=== PATIENT | male | born 1950 | race Caucasian/White ===

== ENCOUNTER → 2018-01-03 | Day surgery (SDC) | payer OTHER ==
[~2018-01-03] VITALS: Ht 188 cm; Wt 163.3 kg
[~2018-01-03] MED LIST: ACTOS15 M1 PO; ALLOPURINOL300 M1 PO; ASPIRIN EC325 M2 PO; BENICAR20 M1 PO; CANE N; CLOPIDOGREL75 M1 PO; DIOVAN160 MG PO; FINASTERIDE5 M1 PO; FLEXERIL10 MG PO; GABAPENTIN400 M2 PO; GLIPIZIDE ER10 M1 PO; GLIPIZIDE10 MG PO; HYDRALAZINE HCL25 M1 PO; JANUVIA100 M1 PO; LASIX20 M1 PO; METFORMIN HCL500 M3 PO; METFORMIN HCL850 M1 PO; MULTIVITAMINS1 EAC9 PO; NAPROXEN D/R500 MG PO; NIFEDIPINE ER60 M2 PO; OXYBUTYNIN CHLOR5 M2 PO; PERCOCET 325 MG1 TA2 PO; PERCOCET 5-3251 EACH PO; TAMSULOSIN HCL0.4 M1 PO; TORSEMIDE20 M1 PO; VITAMIN D22000 UNIT PO; ZOCOR40 M1 PO
--- NOTE | 2018-01-03 14:10 | Operative Report ---
Operative/Inv Procedure Report Surgery Date: 01/03/18 Name of Procedure: cystoscopy: bilaterat retrograde pyelogram: fluoro: bilateral stent insertion: whiting placement Pre-Operative Diagnosis: renal failure: bilateral hydronephrosis Post-Operative Diagnosis: severe bph with bilat. hydro due to GONZAELZ with tortuous ureters bilat. Estimated Blood Loss: scant Surgeon/Club Concierge: Luis Antonio Perry MD Anesthesia: laryngeal mask airway Implants: 7 x 22 Bard Onlay stents bilaterally Drains: 18 fr whiting Complications: none Operative/Procedure Note Note: Patient was taken to the operating room and placed on the OR table in supine position. Timeout was performed, with the patient awake, in order to confirm planned procedure, and other pertinent perioperative information. After adequate anesthesia, and IV antibiotics, the patient was then placed in lithotomy stirrups. The patient was then draped and prepped in usual surgical fashion. A 22 Bhutanese cystoscope sheath with a 30 angle lens was inserted into the bladder without difficulty. Upon entering the prostate, the prostate was noted to have a large sized middle lobe with obstructing lateral lobes. Upon entering the bladder, the bladder was noted to be severely trabeculated with multiple small bladder celluoles. Bilateral ureter orifices were in their orthotopic positions. Both ureteral orifices were in their orthotopic position with no efflux bilaterally. The right orifice was identified, and a tiger tail catheter was inserted into the ureteral orifice. Retrograde pyelogram was performed revealing severely hydronephrotic ureter and renal pelvis with severe tortuosity , and proximal hydronephrosis. No stone, nor tumor were seen on retrograde. The cone-tipped catheter was removed, and a 0.035 Glidewire was advanced into the right renal pelvis without significant difficulty. The Glidewire was advanced into the right renal pelvis where it coiled without difficulty bypassing the ureter cork-screw tract, thus straightening it out. Over this Glidewire a 7 x 22 Bard onlay stent was railroaded. Under direct visualization, the stent was advanced into the right renal pelvis without difficulty. The Glidewire was removed, and the stent remained in proper place with the proximal coil in the renal pelvis and the distal coil in the bladder. At this point, the left orifice was identified, and a tiger tail catheter was inserted into the left ureteral orifice. Retrograde pyelogram was performed revealing severely hydronephrotic left ureter and renal pelvis with severe tortuosity, and proximal hydronephrosis. No stone, nor tumor were seen on retrograde. The cone-tipped catheter was removed, and a 0.035 Glidewire was advanced into the left renal pelvis without significant difficulty. The Glidewire was advanced into the left renal pelvis where it coiled without difficulty bypassing the ureter cork-screw tract, and subsequently straightening it out. Over this Glidewire a 7 x 22 Bard onlay stent was railroaded. Under direct visualization, the stent was advanced into the left renal pelvis without difficulty. The Glidewire was removed, and the stent remained in proper place with the proximal coil in the renal pelvis and the distal coil in the bladder. With both stents in proper place, the cystoscope was removed without difficulty. A new 18 Bhutanese Whiting catheter was inserted into the bladder without difficulty draining clear fluid. 10 mL of sterile water was placed into the 10 mL balloon. The Whiting was catheter was then placed on a drainage bag. All sponge needle and instrument count were correct at the end of the case. The patient tolerated procedure well was then taken to recovery room in satisfactory condition. Discharge Disposition: PACU CC: Luis Antonio Perry MD
--- NOTE | 2018-01-03 17:09 | RADIOLOGY REPORT ---
EXAMINATION: Intraoperative fluoroscopy CLINICAL INFORMATION: Bilateral ureteroscopically with stent placement COMPARISON: None. TECHNIQUE: Intraoperative fluoroscopy was provided for use by Dr. Perry. A total of 13 images were saved to PACS. TOTAL FLUOROSCOPIC TIME: 2.5 minutes FINDINGS\E\IMPRESSION: Intraoperative fluoroscopy provided for use by Dr. Perry. Please see operative note for detailed findings.
== END ==
LOC: STS 02:03
DX: N13.30 Unspecified hydronephrosis (principal); N40.1 Benign prostatic hyperplasia with lower urinary tract symptoms; N13.8 Other obstructive and reflux uropathy; I10 Essential (primary) hypertension; E11.9 Type 2 diabetes mellitus without complications; Z79.84 Long term (current) use of oral hypoglycemic drugs; E66.01 Morbid (severe) obesity due to excess calories; G47.33 Obstructive sleep apnea (adult) (pediatric); Z95.5 Presence of coronary angioplasty implant and graft; Z79.82 Long term (current) use of aspirin
CPT/HCPCS: 76000; 93005; 93010; C2617; J0696; J2250

== ENCOUNTER 2018-01-08 11:38 | Observation (INO) | payer OTHER, MEDICARE ==
[~2018-01-08] VITALS: Ht 188 cm; Wt 158.8 kg
[2018-01-08 12:42] LABS: ABSOLUTE BASOPHIL COUNT 0 /CUMM (0.0-0.2); ABSOLUTE EOSINOPHIL COUNT 0.4 /CUMM (0.0-0.7); ABSOLUTE GRANULOCYTE CT 4.1 /CUMM (1.4-6.5); ABSOLUTE LYMPH COUNT 1.1 /CUMM (1.2-3.4); ABSOLUTE MONOCYTE COUNT 0.6 /CUMM (0.10-0.60); BASOPHIL % 0.4 % (0.0-2.0); EOSINOPHIL % 6.8 % (0-5); GRANULOCYTE % 65.4 % (42.2-75.2); HEMATOCRIT 33.7 % (42-52); MEAN CORPUSCULAR HGB 28.2 PG (27.0-31.0); MEAN CORPUSCULAR HGB CONC 32.5 G/DL (33.0-37.0); MEAN CORPUSCULAR VOLUME 86.6 FL (80.0-94.0); MEAN PLATELET VOLUME 8.6 FL (7.4-10.4); PLATELET COUNT 243 /CUMM (130-400); RBC DISTRIBUTION WIDTH 17.1 % (11.5-14.5); RED BLOOD CELL CT 3.89 /CUMM (4.70-6.10); WHITE BLOOD CELL COUNT 6.3 /CUMM (4.8-10.8)
--- NOTE | 2018-01-08 13:32 | CT SCAN REPORT ---
EXAMINATION: CT ABDOMEN AND PELVIS WITHOUT CONTRAST CLINICAL INFORMATION: 67-year-old male presented with abdominal pain. Status post bilateral ureteric stent placement done on 01/03/2018. COMPARISON: Operative radiographs were obtained at the time of bilateral ureteric stent placement done on 01/03/2018. TECHNIQUE: Multidetector volumetric imaging was performed from the superior aspect of the liver through the pubic symphysis. Sagittal and coronal reformatted images were obtained on the technologist's workstation. DLP: 1555.77 mGy-cm FINDINGS: LUNG BASES: Hypoventilatory changes are present at both lung bases. Atherosclerotic disease is noted within the coronary arteries. LIVER, GALLBLADDER, AND BILIARY TREE: The liver is normal in size, shape, and attenuation. No focal hepatic lesion or biliary ductal dilatation is present. The gallbladder is unremarkable with no evidence of radiopaque gallstones, gallbladder wall thickening, or obvious pericholecystic inflammatory changes. PANCREAS: Partially fatty replaced. SPLEEN: Unremarkable. Accessory splenic tissue is noted around the hilum. ADRENAL GLANDS: Bilaterally minimally nodular without evidence of any discrete mass. KIDNEYS AND URETERS: [id number]-[id number] bilateral hydroureteronephrosis is present with ureteric dilatation seen to the level of the urinary bladder. Extrarenal pelvis is noted bilaterally. Both ureters appear quite tortuous along their entire course. Previously placed bilateral internal ureteric stent appears to have migrated inferiorly with the superior tip on the right seen within the proximal ureter at the level of mid part of L4 vertebral body while the superior tip of the left internal ureteric stent is noted at the level of superior endplate of L5 vertebral body. The inferior ends of both ureteric stents are within the urinary bladder, abutting the lateral gibson inside the lumen of the bladder. BLADDER: There is a Vargas catheter present with suboptimal distention and apparent urinary bladder wall thickening. There are significant inflammatory changes noted around the urinary bladder consistent with superimposed infection, inflammation or combination thereof. Focal lesion within the bladder is not excluded. GASTROINTESTINAL TRACT: Small sliding hiatal hernia is noted. The stomach, small and large bowel loops are decompressed. Colonic diverticulosis related changes are noted within the large bowel without any CT features of superimposed acute diverticulitis. The appendix is visualized and is unremarkable at right lower quadrant of the abdomen. ABDOMINAL WALL: No significant hernia is appreciated. LYMPH NODES: Normal VASCULAR: Mild diffuse atherosclerotic disease is noted within the aorta and its branches without aneurysm formation. PELVIC VISCERA: There is no free fluid and/or free air present. The prostate does not appear to be enlarged. OSSEOUS STRUCTURES: No suspicious lytic or scrotal abnormalities. Multilevel degenerative spondylosis is seen within the lower lumbar spine. Degenerative changes are also noted at both SI joints. IMPRESSION: 1. Evppamcc-wl-[id number] bilateral hydroureteronephrosis. Evidence of bilateral internal ureteric stents. The superior end of the right stent is located within the proximal right ureter, and the left stent within the mid part of the left ureter, as described above. 2. The urinary bladder shows apparent diffuse wall thickening likely secondary to suboptimal distention. There is a Vargas catheter identified. The lower end of both ureteric stents are seen within the lumen of the urinary bladder. Significant nonspecific inflammatory changes are noted around the urinary bladder which likely represent superimposed infection, inflammation or combination thereof. Focal lesion within the urinary bladder is not excluded. 3. Small sliding hiatal hernia. 4. Mild nodularity of both adrenal glands without any discrete mass. 5. Multilevel degenerative spondylosis of lower lumbar spine and degenerative changes at both SI joints.
--- NOTE | 2018-01-08 15:41 | ED GI/GU/ABDOMINAL COMPLAINT ---
History of Present Illness General Chief Complaint: Abdominal Pain/Flank Pain Stated Complaint: ABD PAIN Source: patient Exam Limitations: no limitations Vital Signs & Intake/Output Vital Signs & Intake/Output Vital Signs Date Time Temp Pulse Resp B/P B/P Pulse O2 O2 Flow FiO2 Mean Ox Delivery Rate 01/10 0617 98.1 63 22 138/70 96 CPAP 01/10 0029 82 96 01/09 2245 98.5 69 20 152/62 96 Room Air 01/09 2124 152/62 01/09 1600 97 Room Air 01/09 1600 97.5 58 20 128/64 97 Room Air 01/09 1431 97.5 57 20 126/66 98 Room Air 01/09 0928 65 140/72 01/09 0822 65 140/72 01/09 0821 65 140/72 01/09 0821 65 140/712 ED Intake and Output 01/10 0000 01/09 1200 Intake Total 1220 700 Output Total 1550 1100 Balance -330 -400 Intake, IV 860 700 Intake, Oral 360 0 Number 0 Bowel Movements Output, Urine 1550 1100 Patient 350 lb Weight Allergies Coded Allergies: No Known Allergies (01/01/18) Triage Note: PT TO ED C/O ABD PAIN, HEMATURIA, BLOOD CLOTS IN CORDOVA. PT HAD B/L URINARY STENTS PLACED 01/[address] PERRY. SENT IN FOR CAT SCAN TO MAKE SURE STENTS ARE IN PLACE. PT C/O FEELING DIZZY. Triage Nurses Notes Reviewed? yes HPI: Mr. Watts is a 67-year-old male with past medical history of hypertension, and a recent bilateral ureteral stent placement on 01/[address] Perry for bilateral hydronephrosis. Patient came into the emergency department after a phone conversation with Dr. Perry with the patient described pain and hematuria with clots, and was advised by Dr. Perry to come to the emergency department for a CT abdomen to evaluate ureteral stents placement. The patient has no acute complaint, no abdominal pain, no dysuria, stating he feels better than he has over the past 5 days, with the urine clearing up of blood contents, going from a "leobardo" colored urine, back to the standard qing generis look. (Juan Luis English MD,[facility]) Reconcile Medications Allopurinol 300 MG TABLET 1 TAB PO QPM GOUT (Reported) Aspirin (Ecotrin*) 325 MG TABLET.DR 1 TAB PO DAILY HEART HEALTH (Reported) Clopidogrel Bisulfate (Clopidogrel) 75 MG TABLET 1 TAB PO DAILY BLOOD THINNER (Reported) Ergocalciferol (Vitamin D2) (Vitamin D2) 2,000 UNIT TABLET 1 TAB PO DAILY VITAMIN SUPPORT (Reported) Finasteride 5 MG TABLET 1 TAB PO DAILY PROSTATE (Reported) Gabapentin 400 MG CAPSULE 1 CAP PO TID PAIN (Reported) Glipizide (Glipizide ER) 10 MG TAB.ER.24 1 TAB PO BID DIABETES (Reported) Hydralazine HCl 25 MG TABLET 1 TAB PO DAILY HEART (Reported) Metformin HCl 850 MG TABLET 1 TAB PO TID DIABETES (Reported) Multiple Vitamin (Multivitamins) 1 EACH TABLET 1 TAB PO DAILY supplement ( Reported) Nifedipine (Nifedipine ER) 60 MG TAB.ER.24 1 TAB PO DAILY HEART (Reported) Olmesartan Medoxomil (Benicar) 20 MG TABLET 1 TAB PO DAILY cardiac (Reported) Oxybutynin Chloride 5 MG TABLET 1 TAB PO BID BLADDER (Reported) Simvastatin (Zocor*) 40 MG TABLET 1 TAB PO QPM CHOLESTEROL (Reported) Sitagliptin Phosphate (Januvia) 100 MG TABLET 1 TAB PO DAILY DM (Reported) Tamsulosin HCl 0.4 MG CAP.ER.24H 1 CAP PO DAILY PROSTATE (Reported) Torsemide 20 MG TABLET 2 TAB PO DAILY cardiac (Reported) (Susan ENGLISH,Ilia Lundy) Past History Travel History Traveled to [place] past 21 day No Medical History Any Pertinent Medical History? see below for history Neurological: NONE EENT: NONE Cardiovascular: hypertension Respiratory: NONE Gastrointestinal: NONE Hepatic: NONE Renal: NONE Musculoskeletal: NONE Psychiatric: NONE Endocrine: diabetes Blood Disorders: NONE Cancer(s): NONE STOCK ROLLER/Reproductive: NONE Surgical History Surgical History: B/L ureteral stent placement on 01/03 Psychosocial History What is your primary language Greenlandic Tobacco Use: Quit >30 days ago ETOH Use: occasional use Illicit Drug Use: denies illicit drug use Family History Hx Contributory? Yes (Juan Luis English MD,[facility]) Review of Systems Review of Systems Constitutional: Reports: see HPI. EENTM: Reports: no symptoms. Respiratory: Reports: no symptoms. Cardiovascular: Reports: no symptoms. GI: Reports: no symptoms. Genitourinary: Reports: hematuria. Musculoskeletal: Reports: no symptoms. Skin: Reports: no symptoms. Neurological/Psychological: Reports: no symptoms. Hematologic/Endocrine: Reports: no symptoms. Immunologic/Allergic: Reports: no symptoms. All Other Systems: Reviewed and Negative (Juan Luis English MD,[facility]) Physical Exam Physical Exam General Appearance: well developed/nourished, no apparent distress, alert, awake , obese Head: atraumatic, normal appearance Eyes: Bilateral: normal appearance, PERRL, EOMI, normal inspection. Neck: normal inspection, supple Respiratory: normal breath sounds, chest non-tender, no respiratory distress, lungs clear Cardiovascular: regular rate/rhythm Gastrointestinal: normal bowel sounds, soft, non-tender, no organomegaly Rectal: deferred Extremities: normal range of motion Core Measures ACS in differential dx? No Sepsis Present: No Sepsis Focused Exam Completed? No (Juan Luis English MD,[facility]) Progress Differential Diagnosis: Hydronephrosis Plan of Care: Orders Procedure Date/time Status CBC WITHOUT DIFFERENTIAL 01/10 600 Active BASIC ELECTROLYTES PLUS BUN&CR 01/10 600 Active Anticipated Discharge 01/10 UNK Active Consistent Carbohydrate 2 01/09 L Active CULTURE,URINE 01/09 2151 Active Nursing Misc 01/09 UNK Active Cordova, Insertion/Removal/Asses 01/09 UNK Active Current Medications Sig/Sarah Start time Last Medication Dose Stop Time Status Admin Allopurinol 300 MG QPM 01/09 2100 AC 01/09 (Zyloprim) 2124 Insulin Aspart 0 AT BEDTIME 01/09 2100 AC (NovoLOG) Atorvastatin Calcium 20 MG 1700 01/09 1700 AC 01/09 (Lipitor) 1740 Insulin Aspart 0 TIDAC 01/09 1700 AC 01/09 (NovoLOG) 1739 Finasteride 5 MG DAILY 01/09 900 AC 01/09 (Proscar) 0821 Gabapentin 400 MG TID 01/09 900 AC 01/09 (Neurontin) 2124 Hydralazine HCl 25 MG BID 01/09 900 AC 01/09 (Apresoline) 2124 Losartan Potassium 50 MG DAILY 01/09 900 AC 01/09 (Cozaar) 0822 Nifedipine 60 MG DAILY 01/09 900 AC 01/10 (Procardia XL) 0805 Oxybutynin Chloride 5 MG BID 01/09 900 AC 01/09 (Ditropan) 2124 Tamsulosin HCl 0.4 MG DAILY 01/09 900 AC 01/09 (Flomax) 0821 Acetaminophen 650 MG Q6P PRN 01/08 2315 AC 01/10 (Tylenol) 0805 Laboratory Tests 01/10/18 0614: Sodium Pending, Potassium Pending, Chloride Pending, Carbon Dioxide Pending, Anion Gap Pending, BUN Pending, Creatinine Pending, BUN/Creatinine Ratio Pending , CBC w Diff Pending, WBC Pending, RBC Pending, Hgb Pending, Hct Pending, MCV Pending, MCH Pending, MCHC Pending, RDW Pending, Plt Count Pending, MPV Pending Microbiology 01/09 221 URINE ROUT: Urine Culture - RECD This 67-year-old male with a recent history of bilateral hydroureteronephrosis status post bilateral placement of ureteral stents, though he has no acute complaints, CMP does show a creatinine of 2.0; we will recheck creatinine after fluid resuscitation. Case discussed with Dr. Perry, the attending urologist, who agrees that with improvement of his DELMAR, would be okay for discharge. (Juan Luis English MD,[facility]) I saw and personally examined the patient and I agree with the programming internship's evaluation. He discussed the case with Dr. Perry who is in agreement with the plan of care. The patient is received 1 L of IV fluid, he will receive additional fluids. Assuming he continues to feel better he may be discharged and can follow-up with Dr. Perry and have repeat BUN and creatinine done. The patient was signed out to Dr. Davis at 7 PM. (Ilia Hightower DO) Initial ED EKG: none (Juan Luis English MD,[facility]) Diagnostic Imaging: Discussed w/RAD: CT Scan. Radiology Impression: PATIENT: JELENA WATTS PRESENT AGE: 67 PATIENT ACCOUNT NO: [id number] : 51 LOCATION: [facility] ORDERING PHYSICIAN: Kalin HEARN SERVICE DATE: 01/08/18 EXAM TYPE: CAT - CT ABD & PELVIS W/O IV CONTRAS EXAMINATION: CT ABDOMEN AND PELVIS WITHOUT CONTRAST CLINICAL INFORMATION: 67-year-old male presented with abdominal pain. Status post bilateral ureteric stent placement done on 01/03/2018. COMPARISON: Operative radiographs were obtained at the time of bilateral ureteric stent placement done on 01/03/2018. TECHNIQUE: Multidetector volumetric imaging was performed from the superior aspect of the liver through the pubic symphysis. Sagittal and coronal reformatted images were obtained on the technologist's workstation. DLP: 1555.77 mGy-cm FINDINGS: LUNG BASES: Hypoventilatory changes are present at both lung bases. Atherosclerotic disease is noted within the coronary arteries. LIVER, GALLBLADDER, AND BILIARY TREE: The liver is normal in size, shape, and attenuation. No focal hepatic lesion or biliary ductal dilatation is present. The gallbladder is unremarkable with no evidence of radiopaque gallstones, gallbladder wall thickening, or obvious pericholecystic inflammatory changes. PANCREAS: Partially fatty replaced. SPLEEN: Unremarkable. Accessory splenic tissue is noted around the hilum. ADRENAL GLANDS: Bilaterally minimally nodular without evidence of any discrete mass. KIDNEYS AND URETERS: Qogruwzf-rp-shfpah bilateral hydroureteronephrosis is present with ureteric dilatation seen to the level of the urinary bladder. Extrarenal pelvis is noted bilaterally. Both ureters appear quite tortuous along their entire course. Previously placed bilateral internal ureteric stent appears to have migrated inferiorly with the superior tip on the right seen within the proximal ureter at the level of mid part of L4 vertebral body while the superior tip of the left internal ureteric stent is noted at the level of superior endplate of L5 vertebral body. The inferior ends of both ureteric stents are within the urinary bladder, abutting the lateral gibson inside the lumen of the bladder. BLADDER: There is a Cordova catheter present with suboptimal distention and apparent urinary bladder wall thickening. There are significant inflammatory changes noted around the urinary bladder consistent with superimposed infection, inflammation or combination thereof. Focal lesion within the bladder is not excluded. GASTROINTESTINAL TRACT: Small sliding hiatal hernia is noted. The stomach, small and large bowel loops are decompressed. Colonic diverticulosis related changes are noted within the large bowel without any CT features of superimposed acute diverticulitis. The appendix is visualized and is unremarkable at right lower quadrant of the abdomen. ABDOMINAL WALL: No significant hernia is appreciated. LYMPH NODES: Normal VASCULAR: Mild diffuse atherosclerotic disease is noted within the aorta and its branches without aneurysm formation. PELVIC VISCERA: There is no free fluid and/or free air present. The prostate does not appear to be enlarged. OSSEOUS STRUCTURES: No suspicious lytic or scrotal abnormalities. Multilevel degenerative spondylosis is seen within the lower lumbar spine. Degenerative changes are also noted at both SI joints. IMPRESSION: 1. Uotivpqe-[id number]-emuywx bilateral hydroureteronephrosis. Evidence of bilateral internal ureteric stents. The superior end of the right stent is located within the proximal right ureter, and the left stent within the mid part of the left ureter, as described above. 2. The urinary bladder shows apparent diffuse wall thickening likely secondary to suboptimal distention. There is a Cordova catheter identified. The lower end of both ureteric stents are seen within the lumen of the urinary bladder. Significant nonspecific inflammatory changes are noted around the urinary bladder which likely represent superimposed infection, inflammation or combination thereof. Focal lesion within the urinary bladder is not excluded. 3. Small sliding hiatal hernia. 4. Mild nodularity of both adrenal glands without any discrete mass. 5. Multilevel degenerative spondylosis of lower lumbar spine and degenerative changes at both SI joints. DICTATED BY: Lexy Guerra MD DATE/TIME DICTATED:01/08/181258 [employer] FIELD TECHNICIAN:JENNIFER DATE/TIME TRANSCRIBED:01/08/181258 CONFIDENTIAL, DO NOT COPY WITHOUT APPROPRIATE AUTHORIZATION. <Electronically signed in Other Vendor System> SIGNED BY: Lexy Guerra MD 01/08/18 1332 Comments: 01/08/2018 8:21:01 PM patient signed out to me by Dr. HIGHTOWER at shift change booth attendant. 01/08/2018 8:34:34 PM I have updated Jelena on test results and discussed this case with Dr. Perry who feels the patient should come in for hydration given his increased BUN and creatinine. I will contact the hospitalist. 01/08/2018 8:56:35 PM Jelena seems a bit reluctant to be hospitalized and states that he saw a lode miner recently due to his kidney functions. This raises the possibility of the patient's current BUN and creatinine reflect a subacute to chronic condition and not dehydration or prerenal azotemia. The patient's is attempting to get his most recent BUN and creatinine results. If the patient's renal functions are at baseline that it would seem reasonable for him to follow up as an outpatient. If the patient is suffering from an acute kidney injury is then hospitalization will be considered. (Susan ENGLISH,Ilia Lundy) Departure Departure Condition: Stable Referrals: Dung Kramer MD (PCP/Family) Departure Forms: Customer Survey General Discharge Information (Mcknight English MD,[facility]) Departure Disposition: STILL A PATIENT Clinical Impression Primary Impression: Renal insufficiency Secondary Impressions: Hematuria Resident Co-Sign Statement Statement: ED Attending supervision documentation- [X] I saw and evaluated the patient. I have also reviewed all the pertinent lab results and diagnostic results. I agree with the findings and the plan of care as documented in the Resident's documentation. [] I have reviewed the ED Record and agree with the Resident's documentation. [] Additions or exceptions (if any) to the Resident's note and plan are summarized below: [] (Ilia Hightower DO) Observation Note Spoke With: Harley Schultz MD Patient In: Non-ED OBS Care Area Rationale for Observation: My rational for observation is as follows patient is suffering from an acute kidney injury with an elevated BUN and creatinine. This places him at risk of acidosis or electrolyte abnormality with secondary dysrhythmia. I do not feel he is a good candidate for outpatient management given his difficulty in maintaining an adequate feel intake, according to his family. I feel he requires hospitalization for gentle IV fluids and monitoring of his renal functions. Patient's acute kidney injury is also complicated by the fact that he has bilateral hydronephrosis that could also account for the patient's renal functions. If patient's renal functions do not improve with gentle IV fluids and reevaluation of the patient's bilateral hydronephrosis should be performed along with urology consultation. (Ilia Davis MD) Critical Care Note Critical Care Note Critical Care Time: 30-74 min (Ilia Davis MD)
--- NOTE | 2018-01-08 22:48 | History & Physical ---
Nathan Molina 01/08/18 2247: General Information and HPI MD Statement: I have seen and personally examined JELENA WATTS and documented this H&P. The patient is a 67 year old M who presented with a patient stated chief complaint of [clot hematuria]. Exam Limitations: no limitations History of Present Illness: Jelena Watts is a 67M with a PMH of HTN, T2DM, CAD s/p 2 stents [4-5 years ago at [facility] with Dr Reinoso], b/l ureteric stenting on 01/03/[address] Perry who presents today with a chief complaint of gross clot hematuria without pain x 5 days. Patient states that after his procedure, he began to pee bright red and pass clots. Patient states that he doesnt have any complaints, but his was concerned and so called his urologist who told him to come to the ED to get a CT scan and evaluate if the stents had migrated. He denies fevers/chills/ night sweats/chest pain/shortness of breath/abdominal pain/dysuria/worsened LE edema. Patient states that he has had elevated kidney numbers in the past, and his PCP was worried and sent him to Dr. Perry one year ago, who put him on flomax and proscar for enlarged prostate and got US which showed some reflux. However, kidney numbers were still elevated and so patient was sent to monument erector, who obtained US showing worsening reflux and sent patient to urology who performed bilateral stenting on 01/03/18. 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 1 TAB PO DAILY HEART HEALTH (Reported) Clopidogrel Bisulfate (Clopidogrel) 75 MG TABLET 1 TAB PO DAILY BLOOD THINNER (Reported) Ergocalciferol (Vitamin D2) (Vitamin D2) 2,000 UNIT TABLET 1 TAB PO DAILY VITAMIN SUPPORT (Reported) Finasteride 5 MG TABLET 1 TAB PO DAILY PROSTATE (Reported) Gabapentin 400 MG CAPSULE 1 CAP PO TID PAIN (Reported) Glipizide (Glipizide ER) 10 MG TAB.ER.24 1 TAB PO BID DIABETES (Reported) Hydralazine HCl 25 MG TABLET 1 TAB PO DAILY HEART (Reported) Metformin HCl 850 MG TABLET 1 TAB PO TID DIABETES (Reported) Multiple Vitamin (Multivitamins) 1 EACH TABLET 1 TAB PO DAILY supplement ( Reported) Nifedipine (Nifedipine ER) 60 MG TAB.ER.24 1 TAB PO DAILY HEART (Reported) Olmesartan Medoxomil (Benicar) 20 MG TABLET 1 TAB PO DAILY cardiac (Reported) Oxybutynin Chloride 5 MG TABLET 1 TAB PO BID BLADDER (Reported) Simvastatin (Zocor*) 40 MG TABLET 1 TAB PO QPM CHOLESTEROL (Reported) Sitagliptin Phosphate (Januvia) 100 MG TABLET 1 TAB PO DAILY DM (Reported) Tamsulosin HCl 0.4 MG CAP.ER.24H 1 CAP PO DAILY PROSTATE (Reported) Torsemide 20 MG TABLET 2 TAB PO DAILY cardiac (Reported) Past History Travel History Traveled to [place] past 21 day No Medical History Neurological: NONE EENT: NONE Cardiovascular: hypertension Respiratory: NONE Gastrointestinal: NONE Hepatic: NONE Renal: NONE Musculoskeletal: NONE Psychiatric: NONE Endocrine: diabetes Blood Disorders: NONE Cancer(s): NONE 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 Genitourinary: Reports: see HPI, hematuria. Denies: discharge, dysuria, frequency, pain. Exam & Diagnostic Data Last 24 Hrs of Vital Signs/I&O Vital Signs Date Time Temp Pulse Resp B/P B/P Pulse O2 O2 Flow FiO2 Mean Ox Delivery Rate 01/09 0015 98.1 65 18 152/78 98 Room Air 01/08 2346 98.0 61 20 152/68 96 Room Air 01/08 2003 98.2 82 18 128/64 98 Room Air Room Air 01/08 1816 97.7 66 18 125/61 99 Room Air 01/08 1537 97.9 88 17 124/59 96 Room Air 01/08 1535 Room Air 08/07 1505 98.6 88 18 122/64 94 Room Air 01/08 1157 98.0 89 20 106/64 96 Room Air Intake & Output 01/09 0800 08 0000 01/08 1600 Intake Total Output Total 250 600 200 Balance -250 -600 -200 Output, Urine 250 600 200 Patient 350 lb Weight Weight Reported by Patient Measurement Method Physical Exam General Appearance Alert, Oriented X3, Cooperative, No Acute Distress Skin No Rashes, b/l LE edema Skin Temp/Moisture Exam: Warm/Dry HEENT Atraumatic Neck Supple Cardiovascular Regular Rate, Normal S1, Normal S2 Lungs Clear to Auscultation, Normal Air Movement, distant 2/2 body habitus Abdomen Soft, No Tenderness, obese; no CVA tenderness, no suprapubic tenderness Neurological Strength at 5/5 X4 Ext, Sensation Intact Extremities b.l LE edema Reproductive (MALE) Normal male genitalia Last 24 Hrs of Labs/Ashu: Laboratory Tests 01/08/18 1728: Anion Gap 11, Estimated GFR 36 L, BUN/Creatinine Ratio 24.2 01/08/18 1525: Urinalysis LIGHT H, Urine Color YEL, Urine Clarity CLDY H, Urine pH 6.0, Ur Specific [place] 1.025, Urine Protein 100 H, Urine Ketones NEG, Urine Nitrite NEG, Urine Bilirubin NEG, Urine Urobilinogen 0.2, Ur Leukocyte Esterase SMALL H , Ur Microscopic SEDIMENT EXAMINED, Urine RBC PACKD H, Urine WBC 5-10 H, Ur Epithelial Cells FEW, Urine Bacteria FEW H, Urine Hemoglobin LARGE H, Urine Glucose NEG 01/08/18 1230: Anion Gap 11, Estimated GFR 34 L, BUN/Creatinine Ratio 24.0, Glucose 96, Calcium 10.1, Total Bilirubin 0.2, AST 23, ALT 31, Alkaline Phosphatase 68, Total Protein 6.9, Albumin 4.0, Globulin 2.9, Albumin/Globulin Ratio 1.4, CBC w Diff NO MAN DIFF REQ, RBC 3.89 L, MCV 86.6, MCH 28.2, MCHC 32.5 L, RDW 17.1 H , MPV 8.6, Gran % 65.4, Lymphocytes % 17.3 L, Monocytes % 10.1 H, Eosinophils % 6.8 H, Basophils % 0.4, Absolute Granulocytes 4.1, Absolute Lymphocytes 1.1 L, Absolute Monocytes 0.6, Absolute Eosinophils 0.4, Absolute Basophils 0 Microbiology 01/08 1525 URINE ROUT: Urine Culture - RECD Assessment/Plan Assessment: Jelena Watts is a 67M with a PMH of HTN, T2DM, CAD s/p 2 stents [4-5 years ago at [facility] with Dr Reinoso], b/l ureteric stenting on 01/03/[address] Perry who presents today with a chief complaint of gross clot hematuria without pain x 5 days. He will be placed under observation for DELMAR, unsure of baseline kidney functions. Problem List: #DELMAR on ?CKD #Clot hematuria likely 2/2 stent placement #B/l hydronephrosis #Normacytic anemia, possible 2/2 hematuria #PMH as above #DELMAR on ?CKD -Gentle IVF hydration -Obtain records from PCP/[facility] Dr Andersen in [place] for baseline creatinine -Pending Urology consult -NPO overnight in case of urological intervention in AM #Clot Hematuria -Pending uro consult #Chronic med conditions -RISS, continue home meds DVT PPx- ALPS only, holding heparin and antiplatelets incase of procedure IV access Full Code NPO - can switch to diabetic diet if no procedure Dispo - obs patient, likely to home As Ranked By This Provider Problem List: 1. Hematuria Core Measures/Misc (02/18) Acute Coronary Syndrome ACS Diagnosis: No Congestive Heart Failure Congestive Heart Failure Diagnosis No Cerebrovascular Accident CVA/TIA Diagnosis: No VTE (View Protocol) VTE Risk Factors Age>40 No Mechanical VTE Prophylaxis d/t N/A MechProphylax Ordered No VTE Pharm Prophylaxis d/t Surgical Contraindication Sepsis (View protocol) Sepsis Present: No If YES complete Sepsis Event Note If YES complete Sepsis Event Note Viola Hong 01/08/18 2306: Core Measures/Misc (02/18) Sepsis (View protocol) If YES complete Sepsis Event Note If YES complete Sepsis Event Note Resident Review Statement Resident Statement: examined this patient, discussed with communications intern, agreed with communications intern, discussed with family, reviewed EMR data (avail), discussed with nursing , discussed with case mgmt, reviewed images, amended to note Other Findings: Mr. Watts is a 67yo M w/ PMH of HTN, DM,, CAD s/p stents x 2 in 2013?? by Dr. Reinoso, Gout, s/p BL ureteral stent placement by Dr. Perry on 01/03/2018 for bilateral hydronephrosis, presented to ER w/ CC of pain/hematuria w/ clots in the whiting and was sent in by Dr. Perry by phone for CT Ab eval. The patient has no acute complaint, no abdominal pain, no dysuria, stating he feels better than he has over the past 5 days, with the urine clearing up of blood contents, going from a "leobardo" colored urine, back to clear urine. By the time of admission, patient denied any symptoms, and claimed that his urine output has been diluted in color without much clot from before. Rest of history per HPI above. During our clinical interaction, patient denied recent travel/sick contacts, fever/lightheadedness/diaphoresis/night sweat/weight change/cough/SOB/Chest Pain /Palpitation/Abdominal pain/bowel movement or urinary abnormality, or other skin /musculoskeletal/neurological/mood disorders, or dietary/appetite change. -Smoking: Denied -Alcohol: denied -Rec Drugs: denied -Outpt physicians: Seeing Dr. Jackson as Nephrology, and Dr. Perry as urology. On admission, Vitals: stable afebrile, BP/RR/HR/Sat stable Physical exam as above. Mostly WNL findings. NO CVA tenderness. Urine in urinal was patience pink clear in appearance. No suprapubic tenderness. BLEs +1 pitting edema. -CBC: No leukocytosis, H/H 10.9/33.7 decreased ffrom 12.6 in 2015, PLT 243 -CMP: CR 2.0 elevated from 0.9 in 2015, however no recent baseline from outpatient nephrology clinics. -UA/Microbiology: hematuria w/ +ve Hgb -Ab CT 1. [id number] bilateral hydroureteronephrosis. Evidence of bilateral internal ureteric stents. The superior end of the right stent is located within the proximal right ureter, and the left stent within the mid part of the left ureter, as described above. 2. The urinary bladder shows apparent diffuse wall thickening likely secondary to suboptimal distention. There is a [place] catheter identified. The lower end of both ureteric stents are seen within the lumen of the urinary bladder. Significant nonspecific inflammatory changes are noted around the urinary bladder which likely represent superimposed infection, inflammation or combination thereof. Focal lesion within the urinary bladder is not excluded. 3. Small sliding hiatal hernia. 4. Mild nodularity of both adrenal glands without any discrete mass. 5. Multilevel degenerative spondylosis of lower lumbar spine and degenerative changes at both SI joints. -EKG: NSR w/o significant ST-T abnormalities, unchanged from previous. -Last Echo: None in our system -Interventions in ER: Tylenol PO x 1, NS Bolus x 2L Problem list/Assessment/Hospital Course: #DELMAR on possible CKD #Bilateral hydronephrosis s/p bilateral stents placement #Hematuria likely 2/2 bilateral stent placement #Normacytic anemia, possible 2/2 hematuria #PMH as above - Place in gen med obs. - Vitals per protocol, monitor I&O per protocol. - Novolin SS/AccuChek - Continuous hydration w/ NS 100cc/hr. - Continue home Meds, except holding ASA/Plavix/Torsemide and will keep NPO for AM in case Dr. Perry would want a procedure to be done. - Restart ASA/Plavix and diabetic diet if no OR in the AM - Pending urology consult by Dr. Perry in the AM - Pending cultures including urine - Pain per pathway DVT prophylaxis ALPS only due to active hematuria NPO IV Access: Peripheral IV Full Code Huan Vilchis MD 01/09/18 0535: Core Measures/Misc (02/18) Sepsis (View protocol) If YES complete Sepsis Event Note If YES complete Sepsis Event Note Attending MD Review Statement Attending Statement Attending MD Statement: examined this patient, discuss w/resident/PA/HANSARD REPORTER, agreed w/resident/PA/HANSARD REPORTER Attending Assessment/Plan: Patient is seen and examined independently by me. Care plan discussed with medical assistant float and resident. I agree with the physical exam findings and plan of care as outlined above with the following changes and additions. 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 For the past year, his PCP referred him to Dr. Perry due to his elevated Cr. He has BPH and treated with Flomax and Proscar. Patient has also seen a monument erector and referred patient back to Dr. Perry. Patient had bilateral stent placed on 01/03/18. However, he has gross hematuria since the procedure. He denies fever, chills, abdominal pain, nausea, vomiting or dysuria In the ED, patient is afebrile. WBC 6.3. H.H 10.9/33.7. BUN/Cr 48/2.0 after 2 L NS with repeat BUN/Cr 46/1.9. K 4.3. CT abd/pelvis shows moderate to severe bilateral hydroureteronephrosis. Bilateral ureteric stent appears to have migrated inferiorly. He has no abdominal tenderness and no CV tenderness on exam. Patient is placed on observation on Gen Med for obstructive uropathy with moderate to severe bilateral hydro with renal failure. His bilateral stents appears to migrate inferior by CT. Keep NPO for now. Urology consult. IV hydration and monitor Cr. Contact his PCP or Dr. Perry to find out his recent baseline Cr level. Huan Vilchis MD FACP
[2018-01-09 00:15] VITALS: BP 152/78
--- NOTE | 2018-01-09 00:41 | History & Physical ---
General Information and HPI MD Statement: I have seen and personally examined JELENA WATTS and documented this H&P. The patient is a 67 year old M who presented with a patient stated chief complaint of [clot hematuria]. Source of Information: patient, old records History of Present Illness: Jelena Watts is a 67M with a PMH of HTN, T2DM, CAD s/p 2 stents [4-5 years ago at [facility] with Dr Reinoso], b/l ureteric stenting on 01/03/[address] Perry who presents today with a chief complaint of gross clot hematuria without pain x 5 days. Patient states that after his procedure, he began to pee bright red and pass clots. Patient states that he doesnt have any complaints, but his was concerned and so called his urologist who told him to come to the ED to get a CT scan and evaluate if the stents had migrated. He denies fevers/chills/ night sweats/chest pain/shortness of breath/abdominal pain/dysuria/worsened LE edema. Patient states that he has had elevated kidney numbers in the past, and his PCP was worried and sent him to Dr. Perry one year ago, who put him on flomax and proscar for enlarged prostate and got US which showed some reflux. However, kidney numbers were still elevated and so patient was sent to time clerk, who obtained US showing worsening reflux and sent patient to urology who performed bilateral stenting on 01/03/18. 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 1 TAB PO DAILY HEART HEALTH (Reported) Clopidogrel Bisulfate (Clopidogrel) 75 MG TABLET 1 TAB PO DAILY BLOOD THINNER (Reported) Ergocalciferol (Vitamin D2) (Vitamin D2) 2,000 UNIT TABLET 1 TAB PO DAILY VITAMIN SUPPORT (Reported) Finasteride 5 MG TABLET 1 TAB PO DAILY PROSTATE (Reported) Gabapentin 400 MG CAPSULE 1 CAP PO TID PAIN (Reported) Glipizide (Glipizide ER) 10 MG TAB.ER.24 1 TAB PO BID DIABETES (Reported) Hydralazine HCl 25 MG TABLET 1 TAB PO DAILY HEART (Reported) Metformin HCl 850 MG TABLET 1 TAB PO TID DIABETES (Reported) Multiple Vitamin (Multivitamins) 1 EACH TABLET 1 TAB PO DAILY supplement ( Reported) Nifedipine (Nifedipine ER) 60 MG TAB.ER.24 1 TAB PO DAILY HEART (Reported) Olmesartan Medoxomil (Benicar) 20 MG TABLET 1 TAB PO DAILY cardiac (Reported) Oxybutynin Chloride 5 MG TABLET 1 TAB PO BID BLADDER (Reported) Simvastatin (Zocor*) 40 MG TABLET 1 TAB PO QPM CHOLESTEROL (Reported) Sitagliptin Phosphate (Januvia) 100 MG TABLET 1 TAB PO DAILY DM (Reported) Tamsulosin HCl 0.4 MG CAP.ER.24H 1 CAP PO DAILY PROSTATE (Reported) Torsemide 20 MG TABLET 2 TAB PO DAILY cardiac (Reported) Past History Travel History Traveled to [place] past 21 day No Medical History Neurological: NONE EENT: NONE Cardiovascular: hypertension Respiratory: NONE Gastrointestinal: NONE Hepatic: NONE Renal: NONE Musculoskeletal: NONE Psychiatric: NONE Endocrine: diabetes Blood Disorders: NONE Cancer(s): NONE MEDICAL 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 Genitourinary: Reports: hematuria. Denies: discharge, dysuria, pain, urgency. Exam & Diagnostic Data Last 24 Hrs of Vital Signs/I&O Vital Signs Date Time Temp Pulse Resp B/P B/P Pulse O2 O2 Flow FiO2 Mean Ox Delivery Rate 01/09 0015 98.1 65 18 152/78 98 Room Air 01/08 2346 98.0 61 20 152/68 96 Room Air 01/08 2003 98.2 82 18 128/64 98 Room Air Room Air 01/08 1816 97.7 66 18 125/61 99 Room Air 01/08 1537 97.9 88 17 124/59 96 Room Air 01/08 1535 Room Air 01/08 1505 98.6 88 18 122/64 94 Room Air 01/08 1157 98.0 89 20 106/64 96 Room Air Intake & Output 01/09 0800 01/09 0000 01/08 1600 Intake Total Output Total 250 600 200 Balance -250 -600 -200 Output, Urine 250 600 200 Patient 350 lb Weight Weight Reported by Patient Measurement Method Physical Exam General Appearance Alert, Oriented X3, Cooperative, No Acute Distress Skin No Rashes, b/l LE edema Skin Temp/Moisture Exam: Warm/Dry HEENT Atraumatic Neck Supple Cardiovascular Regular Rate, Normal S1, Normal S2 Lungs Clear to Auscultation, Normal Air Movement, distant lung sounds 2/2 body habitus Abdomen Soft, obese; no CVA tenderness, no suprapubic tenderness Neurological Normal Speech, Strength at 5/5 X4 Ext, Sensation Intact Extremities b/l LE edema Vascular Normal Pulses, Pulses Symmetrical Reproductive (MALE) Normal male genitalia Last 24 Hrs of Labs/Ashu: Laboratory Tests 01/08/18 1728: Anion Gap 11, Estimated GFR 36 L, BUN/Creatinine Ratio 24.2 01/08/18 1525: Urinalysis LIGHT H, Urine Color YEL, Urine Clarity CLDY H, Urine pH 6.0, Ur Specific [place] 1.025, Urine Protein 100 H, Urine Ketones NEG, Urine Nitrite NEG, Urine Bilirubin NEG, Urine Urobilinogen 0.2, Ur Leukocyte Esterase SMALL H , Ur Microscopic SEDIMENT EXAMINED, Urine RBC PACKD H, Urine WBC 5-10 H, Ur Epithelial Cells FEW, Urine Bacteria FEW H, Urine Hemoglobin LARGE H, Urine Glucose NEG 01/08/18 1230: Anion Gap 11, Estimated GFR 34 L, BUN/Creatinine Ratio 24.0, Glucose 96, Calcium 10.1, Total Bilirubin 0.2, AST 23, ALT 31, Alkaline Phosphatase 68, Total Protein 6.9, Albumin 4.0, Globulin 2.9, Albumin/Globulin Ratio 1.4, CBC w Diff NO MAN DIFF REQ, RBC 3.89 L, MCV 86.6, MCH 28.2, MCHC 32.5 L, RDW 17.1 H , MPV 8.6, Gran % 65.4, Lymphocytes % 17.3 L, Monocytes % 10.1 H, Eosinophils % 6.8 H, Basophils % 0.4, Absolute Granulocytes 4.1, Absolute Lymphocytes 1.1 L, Absolute Monocytes 0.6, Absolute Eosinophils 0.4, Absolute Basophils 0 Microbiology 01/08 1525 URINE ROUT: Urine Culture - RECD Assessment/Plan Assessment: Jelena Watts is a 67M with a PMH of HTN, T2DM, CAD s/p 2 stents [4-5 years ago at [facility] with Dr Reinoso], b/l ureteric stenting on 01/03/[address] Perry who presents today with a chief complaint of gross clot hematuria without pain x 5 days. He will be placed under observation for DELMAR, unsure of baseline kidney functions. Problem List: #DELMAR on ?CKD #Clot hematuria #DELMAR -Gentle IVF hydration -Obtain records from PCP/Data Support Analyst Dr Andersen in [place] for baseline creatinine -F/u Urology consult -NPO overnight in case of urological intervention in AM #Clot Hematuria - Core Measures/Misc (02/18) Sepsis (View protocol) If YES complete Sepsis Event Note If YES complete Sepsis Event Note
[2018-01-09 06:20] VITALS: BP 140/72
--- NOTE | 2018-01-09 07:45 | PN- Housestaff ---
Angel Luis French 01/09/18 0745: Subjective Follow-up For: Gross Hematuria Acute Kidney Injury, post-renal Subjective: Afebrile overnight. Patient is currently having his CPAP treatment this morning. Patient states he has b/l ureteral stents with 5 day history of bloody urine but denies any specific pain with urination apart from straining to urinate for the past few days due to clot formation. Patien denies any dysuria this morning. Patient denies any abdominal pain and flank pains. Patient otherwise denies any fevers, chills, fatigue, shortness of breath, n/v, diarrhea, constipation, and chest pain. Patients PCP is Dr. Daisha Kramer ([place], [place]), Leasing Director is Dr. Treva Andersen ([place]), and Urologist is Dr. Perry. Review of Systems Constitutional: Reports: see HPI. Objective Last 24 Hrs of Vital Signs/I&O Vital Signs Date Time Temp Pulse Resp B/P B/P Pulse O2 O2 Flow FiO2 Mean Ox Delivery Rate 01/09 0620 97.8 55 18 140/72 97 CPAP 01/09 0240 98 01/09 0015 98.1 65 18 152/78 98 Room Air 01/08 2346 98.0 61 20 152/68 96 Room Air 01/08 2003 98.2 82 18 128/64 98 Room Air Room Air 01/08 1816 97.7 66 18 125/61 99 Room Air 01/08 1537 97.9 88 17 124/59 96 Room Air 01/08 1535 Room Air 01/08 1505 98.6 88 18 122/64 94 Room Air 01/08 1157 98.0 89 20 106/64 96 Room Air Intake & Output 01/09 1600 01/09 0800 01/09 0000 Intake Total 700 Output Total 1100 600 Balance -400 -600 Intake, IV 700 Intake, Oral 0 Output, Urine 1100 600 Patient 350 lb Weight Physical Exam General Appearance: Alert, Oriented X3, Cooperative, No Acute Distress Skin: No Rashes, No Breakdown HEENT: Atraumatic Neck: Supple, No JVD Cardiovascular: Regular Rate, Normal S1, Normal S2 Lungs: Clear to Auscultation, Normal Air Movement Abdomen: Soft, No Tenderness Extremities: 2+ pitting edema in lower extremities, mainly around the ankles with decreased swelling distally Assessment/Plan Assessment: CT ABD & PELVIS W/O IV CONTRAS 1. Gdxunupg-yf-ciexru bilateral hydroureteronephrosis. Evidence of bilateral internal ureteric stents. The superior end of the right stent is located within the proximal right ureter, and the left stent within the mid part of the left ureter, as described above. 2. The urinary bladder shows apparent diffuse wall thickening likely secondary to suboptimal distention. There is a Vargas catheter identified. The lower end of both ureteric stents are seen within the lumen of the urinary bladder. Significant nonspecific inflammatory changes are noted around the urinary bladder which likely represent superimposed infection, inflammation or combination thereof. Focal lesion within the urinary bladder is not excluded. 3. Small sliding hiatal hernia. 4. Mild nodularity of both adrenal glands without any discrete mass. 5. Multilevel degenerative spondylosis of lower lumbar spine and degenerative changes at both SI joints. Chas Alvarez is a 67M with a PMH of HTN, T2DM, CAD s/p 2 stents [4-5 years ago at [facility] with Dr Reinoso], b/l ureteric stenting on 01/03/[address] Perry who presents today with a chief complaint of gross clot hematuria without pain x 5 days. Patient was placed in observation yesterday and will continue to be observation as of today. #DELMAR with Chronic Kidney Disease, Stage III -Gentle IVF hydration D5 1/2 NS -Cr today 1.4 (01/01 Cr 2.1 and in Februrary Cr 1.45) January 01: BUN 46 Cr 2.1 GFR July: BUN 44 Cr. 1.45 GFR 50 -Dr. Perry (Urology) took patient to OR to reposition b/l ureteral stents, patient recovering; patient will be kept overnight for observation -Dr. Treva Villalta (Nephro) follows patient, started patient as outpatient on Toresemide 40 mg qd and told to watch weight changes daily; if >2 lb wt. loss per day told to decrease Toresemide 20 mg. -NPO #Clot Hematuria likely 2/2 s/p stent plcement with Dr. Perry 01/03/18 - will reposition b/l ureteral stents -b/l Hydronephrosis -Normocytic anemia H/H 10.9/33.7; MCV 86.6 #Chronic med conditions -RISS, continue home meds DVT PPx- ALPS only, holding heparin and antiplatelets due to procedure IV access Full Code Problem List: 1. Hematuria 2. DELMAR (acute kidney injury) 3. Chronic kidney disease 4. Hypertension Pain Ratin Pain Location: NA Pain Goal: Remain pain free Pain Plan: NA Tomorrow's Labs & Rationales: routine, as indicated Eunice Shin MD 01/09/18 0947: Attending MD Review Statement Attending Statement Attending MD Statement: examined this patient, discuss w/resident/PA/PROJECT HIRE, agreed w/resident/PA/PROJECT HIRE, reviewed EMR data (avail), discussed with nursing, discussed with case mgmt, reviewed images Attending Assessment/Plan: 67-year-old male past medical history of diabetes, hypertension, CKD with baseline creatinine around 1.4-1.5, morbid obesity and coronary artery disease with stents done 4 years ago. He follows with Dr. Reinoso and is on dual antiplatelet therapy. He had obstructive uropathy and had bilateral ureteral stents placed on January 03 but they have since migrated resulting in DELMAR and bilateral hydroureteronephrosis. He is n.p.o. and Dr. Perry is going to take him to the OR today to replace the stents. His creatinine is already down to 1.4 and will need to watch that. Will need to talk to Dr. Perry about when it safe to restart his dual antiplatelet therapy.
[2018-01-09 08:22] LABS: ABSOLUTE BASOPHIL COUNT 0 /CUMM (0.0-0.2); ABSOLUTE EOSINOPHIL COUNT 0.4 /CUMM (0.0-0.7); ABSOLUTE GRANULOCYTE CT 2.4 /CUMM (1.4-6.5); ABSOLUTE LYMPH COUNT 0.9 /CUMM (1.2-3.4); ABSOLUTE MONOCYTE COUNT 0.4 /CUMM (0.10-0.60); BASOPHIL % 0.5 % (0.0-2.0); EOSINOPHIL % 8.8 % (0-5); GRANULOCYTE % 58.7 % (42.2-75.2); HEMATOCRIT 30.7 % (42-52); MEAN CORPUSCULAR HGB 28.7 PG (27.0-31.0); MEAN CORPUSCULAR VOLUME 86.9 FL (80.0-94.0); PLATELET COUNT 207 /CUMM (130-400); RED BLOOD CELL CT 3.53 /CUMM (4.70-6.10); WHITE BLOOD CELL COUNT 4.1 /CUMM (4.8-10.8)
--- NOTE | 2018-01-09 10:06 | Discharge Summary ---
Visit Information Visit Dates Admission Date: 01/08/18 Discharge Date: 01/10/18 Hospital Course Course Attending Physician: Kip ENGLISH,Eunice Medley Primary Care Physician: Williams ENGLISH,Dung Consulting Request: Consulting Specialty: Urology Consulting Physician: Dr. Perry Reason for Consult: Gross Hematuria Hospital Course: Chas Alvarez is a 67M with a PMH of HTN, T2DM, CAD s/p 2 stents [4-5 years ago at [facility] with Dr Reinoso], b/l ureteric stenting on 01/03/[address] Perry who presented to the ED with a chief complaint of gross clot hematuria without pain x 5 days. Patient presented to the ED with a Cr of 2.0 which has since come down to 1.4. Patient had a CT abd/pelvis to assess the b/l ureteral stents positioning. Dr. Perry (Urology) reviewed the scan and decided to take the patient to the OR for repositioning of the b/l ureteral stents. 1. DELMAR with underlying Chronic Kidney Disease, Stage III -Pt. received gentle IVF hydration D5 /2 NS -Cr today 1.4 (01/01 Cr 2.1 and in Februrary Cr 1.45) January 01: BUN 46 Cr 2.1 GFR July: BUN 44 Cr. 1.45 GFR 50 -Dr. Perry (Urology) took patient to OR to reposition b/l ureteral stents -Dr. Treva Villalta (Nephro) follows patient, started patient as outpatient on Toresemide 40 mg qd and told to watch weight changes daily; if >2 lb wt. loss per day told to decrease Toresemide 20 mg. 2. Clot Hematuria likely 2/2 s/p stent plcement with Dr. Perry 01/03/18 - will reposition b/l ureteral stents 01/09 -b/l Hydronephrosis -Normocytic anemia H/H 10.9/33.7; MCV 86.6 Allergies: Coded Allergies: No Known Allergies (01/01/18) Significant Procedures: ABD/PELVIS CT IMPRESSION: 1. Vkppunmr-ed-cahvrm bilateral hydroureteronephrosis. Evidence of bilateral internal ureteric stents. The superior end of the right stent is located within the proximal right ureter, and the left stent within the mid part of the left ureter, as described above. 2. The urinary bladder shows apparent diffuse wall thickening likely secondary to suboptimal distention. There is a Vargas catheter identified. The lower end of both ureteric stents are seen within the lumen of the urinary bladder. Significant nonspecific inflammatory changes are noted around the urinary bladder which likely represent superimposed infection, inflammation or combination thereof. Focal lesion within the urinary bladder is not excluded. 3. Small sliding hiatal hernia. 4. Mild nodularity of both adrenal glands without any discrete mass. 5. Multilevel degenerative spondylosis of lower lumbar spine and degenerative changes at both SI joints. Pertinent Lab Results: Cr 1.4 BUN 38 GFR 51 Disposition Summary Disposition Principal Diagnosis: Gross Hematuria, related to post-Renal DELMAR Additional Diagnosis: CKD, Stage III HTN T2DM Discharge Disposition: home or self care Discharge Instructions General Discharge Information Code Status: Full Code Patient's Diet: Diabetic, as tolerated Patient's Activity: Resume normal activity, as tolerated Follow-Up Instructions/Appts: Please follow up with your PCP within a week. Please follow up with your Locker Room Manager within a week. Please follow up with your Urologist within 2 weeks. Please take all medications as prescribed. Medications at Discharge Discharge Medications: Continue taking these medications: Aspirin (Ecotrin*) 325 MG TABLET.DR 1 Tablet ORAL DAILY Comments: NOT GIVEN IN HOSPITAL Simvastatin (Zocor*) 40 MG TABLET 1 Tablet ORAL Every night Comments: LIPITOR GIVEN Last Taken: 01/09/18 Time: 5:40 PM Ergocalciferol (Vitamin D2) (Vitamin D2) 2,000 UNIT TABLET 1 Tablet ORAL DAILY Comments: NOT GIVEN IN HOSPITAL Hydralazine HCl (Hydralazine HCl) 25 MG TABLET 1 Tablet ORAL DAILY Qty = 56 Comments: Last Taken: 01/10/18 Time: 8:24 AM Oxybutynin Chloride (Oxybutynin Chloride) 5 MG TABLET 1 Tablet ORAL TWICE DAILY Qty = 56 Comments: Last Taken: 01/10/18 Time: 8:24 AM Nifedipine (Nifedipine ER) 60 MG TAB.ER.24 1 Tablet ORAL DAILY Qty = 28 Comments: Last Taken: 01/10/18 Time: 8:05 AM Gabapentin (Gabapentin) 400 MG CAPSULE 1 Capsule ORAL THREE TIMES DAILY Qty = 84 Comments: Last Taken: 01/10/18 Time: 12:40 PM Clopidogrel Bisulfate (Clopidogrel) 75 MG TABLET 1 Tablet ORAL DAILY Qty = 28 Comments: NOT GIVEN IN HOSPITAL Allopurinol (Allopurinol) 300 MG TABLET 1 Tablet ORAL Every night Qty = 28 Comments: Last Taken: 01/09/18 Time: 10:24 PM Tamsulosin HCl (Tamsulosin HCl) 0.4 MG CAP.ER.24H 1 Capsule ORAL DAILY Qty = 28 Comments: Last Taken: 01/10/18 Time: 8:23 AM Finasteride (Finasteride) 5 MG TABLET 1 Tablet ORAL DAILY Qty = 28 Comments: Last Taken: 01/10/18 Time: 8:26 AM Metformin HCl (Metformin HCl) 850 MG TABLET 1 Tablet ORAL THREE TIMES DAILY Qty = 84 Comments: NOT GIVEN IN HOSPITAL Glipizide (Glipizide ER) 10 MG TAB.ER.24 1 Tablet ORAL TWICE DAILY Qty = 56 Comments: NOT GIVEN IN HOSPITAL Sitagliptin Phosphate (Januvia) 100 MG TABLET 1 Tablet ORAL DAILY Comments: NOT TAKEN IN HOSPITAL Torsemide (Torsemide) 20 MG TABLET 2 Tablet ORAL DAILY Comments: NOT GIVEN IN HOSPITAL Olmesartan Medoxomil (Benicar) 20 MG TABLET 1 Tablet ORAL DAILY Comments: NOT GIVEN IN HOSPITAL Multiple Vitamin (Multivitamins) 1 EACH TABLET 1 Tablet ORAL DAILY Comments: NOT GIVEN IN HOSPITAL Copies To: Ganesh ENGLISH,Treva Castro; Williams ENGLISH,Shy Perry MD,Emily Reinoso MD PHD,Duran Castro Attending MD Review Statement Documenting Attending: Kip ENGLISH,Eunice Medley
--- NOTE | 2018-01-09 10:10 | Patient Discharge Instructions ---
Discharge Instructions General Discharge Information You were seen/treated for: Gross Hematuria Acute Kidney Injury, post-renal You had these procedures: ABD/PELVIS CT Bilteral Ureteral Stent repositioning procedure Watch for these problems: Watch for any continuing symptoms of bloody urine and/or pain with urination. If experience any burning on urination, abdominal tenderness, and flank pain please follow up with your PCP. Special Instructions: Please follow up with your PCP within a week. Please restart Aspirin and Clopidogrel Please follow up with your Dragline Oiler within a week. Please follow up with your Urologist Dr. Perry within 1 week. Please take all medications as prescribed. Diet Continue normal diet: Yes Recommended Diet: Diabetic Activity Full Activity/No Limits: No Activity Self Limited: Yes Acute Coronary Syndrome Inclusion Criteria At DC or during hospital stay patient has or had the following: ACS DIAGNOSIS No Discharge Core Measures Meds if any: Prescribed or Continued at Discharge Meds if any: NOT Prescribed or Continued at Discharge Congestive Heart Failure Inclusion Criteria At DC or during hospital stay patient has or had the following: CHF DIAGNOSIS No Discharge Core Measures Meds if any: Prescribed or Continued at Discharge Meds if any: NOT Prescribed or Continued at Discharge Cerebrovascular accident Inclusion Criteria At DC or during hospital stay patient has or had the following: CVA/TIA Diagnosis No Discharge Core Measures Meds if any: Prescribed or Continued at Discharge Meds if any: NOT Prescribed or Continued at Discharge Venous thromboembolism Inclusion Criteria VTE Diagnosis No VTE Type NONE VTE Confirmed by (Test) NONE Discharge Core Measures - Per Current guidelines, there needs to be overlap - treatment for the first 5 days of Warfarin therapy. - If discharged on Warfarin prior to 5 days of - overlap therapy, the patient will need to be - assessed for post discharge needs including - *Post discharge parental anticoagulation - *Warfarin and/or parental anticoagulation education - *Follow up date to check INR post discharge At least 5 days overlap therapy as Inpatient No Meds if any: Prescribed or Continued at Discharge Note: Overlap Therapy is Warfarin and Anticoagulant Meds if any: NOT Prescribed or Continued at Discharge
[2018-01-09 14:31] VITALS: BP 126/66
[2018-01-09 16:00] VITALS: BP 128/64
--- NOTE | 2018-01-09 16:29 | RADIOLOGY REPORT ---
EXAMINATION: C-ARM FLUOROSCOPY CLINICAL INFORMATION: C-arm fluoroscopy was provided to Dr. Luis Antonio Perry to assess the placement of bilateral ureteral stents. A total of 10 C-arm spot films were obtained for documentation.
[2018-01-09 22:45] VITALS: BP 152/62
[2018-01-10 06:17] VITALS: BP 138/70
[2018-01-10 08:08] LABS: ABSOLUTE BASOPHIL COUNT 0 /CUMM (0.0-0.2); ABSOLUTE EOSINOPHIL COUNT 0.3 /CUMM (0.0-0.7); ABSOLUTE GRANULOCYTE CT 2.7 /CUMM (1.4-6.5); ABSOLUTE LYMPH COUNT 0.8 /CUMM (1.2-3.4); ABSOLUTE MONOCYTE COUNT 0.5 /CUMM (0.10-0.60); BASOPHIL % 0.3 % (0.0-2.0); EOSINOPHIL % 6.4 % (0-5); GRANULOCYTE % 63.9 % (42.2-75.2); HEMATOCRIT 30.6 % (42-52); MEAN CORPUSCULAR HGB CONC 33.2 G/DL (33.0-37.0); MEAN CORPUSCULAR VOLUME 87.4 FL (80.0-94.0); MEAN PLATELET VOLUME 9.1 FL (7.4-10.4); PLATELET COUNT 208 /CUMM (130-400); RBC DISTRIBUTION WIDTH 18.1 % (11.5-14.5); WHITE BLOOD CELL COUNT 4.2 /CUMM (4.8-10.8)
[2018-01-10 08:24] VITALS: BP 122/76
--- NOTE | 2018-01-10 10:10 | PN-Observation ---
Angel Luis French 01/10/18 1009: Observation Note Observation Note _ I have personally examined JELENA WATTS. His disposition is to be discharged home today. Patient will follow up with his Urologist Dr. Perry as an outpatient. Assessment/Plan Medical Assessment: CT ABD & PELVIS W/O IV CONTRAS 1. Edzjyfis-ay-ysyswh bilateral hydroureteronephrosis. Evidence of bilateral internal ureteric stents. The superior end of the right stent is located within the proximal right ureter, and the left stent within the mid part of the left ureter, as described above. 2. The urinary bladder shows apparent diffuse wall thickening likely secondary to suboptimal distention. There is a Vargas catheter identified. The lower end of both ureteric stents are seen within the lumen of the urinary bladder. Significant nonspecific inflammatory changes are noted around the urinary bladder which likely represent superimposed infection, inflammation or combination thereof. Focal lesion within the urinary bladder is not excluded. 3. Small sliding hiatal hernia. 4. Mild nodularity of both adrenal glands without any discrete mass. 5. Multilevel degenerative spondylosis of lower lumbar spine and degenerative changes at both SI joints. Problem List: #DELMAR with CKD, Stage III #Hematuria #Chronic HTN Problem List: 1. Hematuria 2. DELMAR (acute kidney injury) 3. Chronic kidney disease 4. Hypertension Plan: Jelena Watts is a 67M with a PMH of HTN, T2DM, CAD s/p 2 stents [4-5 years ago at [facility] with Dr Reinoso], b/l ureteric stenting on 01/03/[address] Perry who presents today with a chief complaint of gross clot hematuria without pain x 5 days. Patient was placed in observation yesterday and will continue to be observation as of today. #DELMAR with Chronic Kidney Disease, Stage III -Gentle IVF hydration D5 /2 NS -Cr today 1.2 (01/01 Cr 2.1 and in Februrary Cr 1.45) January 01: BUN 46 Cr 2.1 GFR July: BUN 44 Cr. 1.45 GFR 50 -Dr. Perry (Urology) took patient to OR to reposition b/l ureteral stents, patient recovering; patient has Vargas placed producing light red urine -Dr. Treva Villalta (Nephro) follows patient, started patient as outpatient on Toresemide 40 mg qd and told to watch weight changes daily; if >2 lb wt. loss per day told to decrease Toresemide 20 mg. -NPO #Clot Hematuria likely 2/2 s/p stent plcement with Dr. Perry 01/03/18 - repositioned b/l ureteral stents -b/l Hydronephrosis -Normocytic anemia H/H 10.9/33.7; MCV 86.6 #Chronic med conditions -RISS, continue home meds Full Code Consulting Request: Consulting Specialty: Urology Consulting Physician: Dr. Perry Reason for Consult: Gross Hematuria Subjective Follow-up For: Gross Hematuria Acute Kidney Injury, post-renal Subjective: Afebrile overnight. No acute events overnight. Patient mentioned he had difficulty urinating yesterday without noticing any clots, and he subsequently had the Vargas reinserted due to difficulty to void. Patient denies any dysuria this morning. Patient denies any abdominal pain and flank pains. Patient otherwise denies any fevers, chills, fatigue, shortness of breath, n/v, diarrhea , constipation, and chest pain. Patient will be sent home with Vargas in place and can expect to produce hematuria for the next couple of days until the inflammatory changes resolve from the recent b/l ureteral repositioning operation. Patients PCP is Dr. Daisha Kramer ([place], [place]), Asphalt Distributor Operator is Dr. Treva Andersen ([place]), and Urologist is Dr. Perry. Review of Systems Constitutional: Reports: see HPI. Objective Last 24 Hrs of Vital Signs/I&O Vital Signs Date Time Temp Pulse Resp B/P B/P Pulse O2 O2 Flow FiO2 Mean Ox Delivery Rate 01/11 824 63 122/76 01/10 823 63 122/76 01/10 0823 63 122/76 01/10 0805 63 122/76 01/10 0800 95 Room Air 01/10 0617 98.1 63 22 138/70 96 CPAP 01/10 0029 82 96 01/09 2245 98.5 69 20 152/62 96 Room Air 01/09 2124 152/62 01/09 1600 97 Room Air 01/09 1600 97.5 58 20 128/64 97 Room Air 01/09 1431 97.5 57 20 126/66 98 Room Air Intake & Output 01/10 1600 01/10 0800 01/10 0000 Intake Total 130 250 Output Total 1050 1150 Balance -920 -900 Intake, IV 10 10 Intake, Oral 120 240 Output, Urine 1050 1150 Physical Exam General Appearance: Alert, Oriented X3, Cooperative, No Acute Distress HEENT: Atraumatic Cardiovascular: Regular Rate, Normal S1, Normal S2 Lungs: Clear to Auscultation Abdomen: Soft, No Tenderness Neurological: Normal Speech Extremities: 2+ edema lower extremity Kip ENGLISH,Eunice 01/10/18 1029: Observation Note Observation Note _ I have personally examined JELENA WATTS. him disposition is uncertain at this time. Before a determination can be made, he requires continued observation for the following reasons -obstructive uropathy. 67-year-old male past medical history of coronary artery disease on aspirin and Plavix as an outpatient, diabetes who is here with obstructive uropathy. The stent had migrated and Dr. Perry replaced them. Overnight he had the sensation of voiding and was catheterized for 900 mL and now has a Vargas catheter with dark urine in. His creatinine has come down to baseline and I think he stable to go today. I will clarify with Dr. Perry that he believed with a Vargas and we also need to clarify when he can restart his antiplatelet agents.
--- NOTE | 2018-02-05 07:36 | Operative Report ---
Operative/Inv Procedure Report Surgery Date: 01/09/18 Name of Procedure: cystoscopy: bilateral retrograde pyelogram: bilateral stent insertion Pre-Operative Diagnosis: Bilateral hydronephrosis: ARF: sepsis Post-Operative Diagnosis: same Estimated Blood Loss: scant Surgeon/Custody Officer: MD [place], [place]-[facility]
--- NOTE | 2018-02-05 16:47 | Operative Report ---
Operative/Inv Procedure Report Surgery Date: 01/10/18 Name of Procedure: cystoscopy: bilateral retrograde pyeologram, bilateral stent placement. fluorosocpy Pre-Operative Diagnosis: bilateral severely hydronephrotic and tortuous ureterers due to GONZALEZ, and ARF, and sepsis. Post-Operative Diagnosis: same Estimated Blood Loss: scant Surgeon/Crisis Counselor: MD Orlando, Arnold-urology Anesthesia: laryngeal mask airway Drains: 20 romansh whiting Complications: none Operative/Procedure Note Note: The patient was taken to the operating room, and transferred to the OR table in supine position. Timeout was performed, with the patient awake, in order to confirm identity, procedure, antibiotics, anesthesia, and other pertinent information. After adequate anesthesia and antibiotics, the patient was placed in lithotomy stirrups draped and prepped in the usual surgical fashion. A 22 Malawian cystoscope sheath with 30 angle lens was inserted into the urethra without difficulty. Upon entering the prostatic urethra, the prostate was noted to have severe BPH, with severely trabeculated bladder. Upon entering the bladder, the bladder was noted to be free of tumor, free of stone, with bilateral clear efflux from bilateral ureteral orifices. Under direct visualization the left orifice was intubated with a 5 Malawian whistle-tip catheter. Retrograde pyelogram revealed a severely hydronephrotic and tortuous ureter. Contrast material drained slowly from the left side. The ureteral catheter was then removed, and inserted into the right ureteral orifice. Retrograde pyelogram of the right ureter reveals again a severely hydronephrotic and tortuous ureter, without filling defect. This is consitent with severe BPH- urinary retention. The retrograde catheter was then removed, and contrast material was slow to drain from the right side. The right orifice was then inserted with a 0.035 guidewire, and advanced into the right renal pelvis without significant difficulty, coursing along the tortuous ureter. A 6 x 28 Bard Onlay ureteral stent was rail-roaded over the guidewire. Following the guidewire, the stent advanced into the right renal pelvis without difficulty. With the proximal coil visualized fluoroscopically in the right renal pelvis, and the distal coil seen in the bladder cystoscopically, the guidewire was removed. The stent remained in proper place, draining clear yellow fluid. The left orifice was then inserted with a 0.035 guidewire, and advanced into the left renal pelvis without difficulty, traveling along the tortuous ureter route. A second 6 x 28 Bard Onlay stent was rail-roaded over the guidewire. Following the guidewire, the stent advanced into the right renal pelvis without difficulty. With the proximal coil visualized fluoroscopically in the left renal pelvis, and the distal coil seen in the bladder cystoscopically, the guidewire was removed. The stent remained in proper place, draining clear yellow fluid. The bladder was left full, and the cystoscope was removed without difficulty. A 20 Malawian Whiting catheter was then inserted into the bladder without significant difficulty, draining clear fluid. 10 mL of sterile water was placed into the balloon. All sponge, needle, and instrument count, were correct at the end of the case. The patient tolerated the procedure well, and was taken to the recovery room in satisfactory condition. Findings: bilat. hydro. tortuous ureters Discharge Disposition: PACU CC: Luis Antonio Perry MD
== END 2018-01-10 15:20 ==
LOC: ERH 11:38 → ERHI 22:29 → 2NA 22:29 → ENTRNSPT 01-09 12:21 → EDTRNSPTSTS 01-09 12:42 → CMPTRNSPT 01-09 13:31 → ENPENDDIS 01-10 11:15 → ENTRNSPT 01-10 15:00 → EDTRNSPT 01-10 15:14 → EDTRNSPTSTS 01-10 15:14 → CMPTRNSPT 01-10 15:20 → 2NA 01-10 15:20
PROVIDERS: Physician Assistant; Student in an Organized Health Care Education/Training Program
DX: N32.0 Bladder-neck obstruction (principal); N13.1 Hydronephrosis with ureteral stricture, not elsewhere classified; N13.8 Other obstructive and reflux uropathy; E11.22 Type 2 diabetes mellitus with diabetic chronic kidney disease; I12.9 Hypertensive chronic kidney disease with stage 1 through stage 4 chronic kidney disease, or unspecified chronic kidney disease; N18.3 Chronic kidney disease, stage 3 (moderate); N17.9 Acute kidney failure, unspecified; Z79.84 Long term (current) use of oral hypoglycemic drugs; Z79.82 Long term (current) use of aspirin
CPT/HCPCS: 1288; 36592; 74176; 76000; 81001; 82436; 87086; 96360; 99291; C2617; G0378; J0131; J7042

== ENCOUNTER 2018-01-22 16:53 | Inpatient (IN) | payer OTHER, MEDICARE ==
[~2018-01-22] VITALS: Ht 188 cm; Wt 155.1 kg
--- NOTE | 2018-01-22 17:10 | ED GI/GU/ABDOMINAL COMPLAINT ---
History of Present Illness General Chief Complaint: General Adult Stated Complaint: SENT IN BY MD PERRY FOR ?ADMISSION Source: patient, family Exam Limitations: no limitations Vital Signs & Intake/Output Vital Signs & Intake/Output Vital Signs Date Time Temp Pulse Resp B/P B/P Pulse O2 O2 Flow FiO2 Mean Ox Delivery Rate 01/22 1944 99.6 88 18 144/65 96 Room Air 01/22 1658 99.0 104 20 148/78 98 Room Air Allergies Coded Allergies: No Known Allergies (01/01/18) Reconcile Medications Allopurinol 300 MG TABLET 1 TAB PO QPM GOUT (Reported) Aspirin (Ecotrin*) 325 MG TABLET.DR 1 TAB PO DAILY HEART HEALTH (Reported) Clopidogrel Bisulfate (Clopidogrel) 75 MG TABLET 1 TAB PO DAILY BLOOD THINNER (Reported) Ergocalciferol (Vitamin D2) (Vitamin D2) 2,000 UNIT TABLET 1 TAB PO DAILY VITAMIN SUPPORT (Reported) Finasteride 5 MG TABLET 1 TAB PO DAILY PROSTATE (Reported) Gabapentin 400 MG CAPSULE 1 CAP PO TID PAIN (Reported) Glipizide (Glipizide ER) 10 MG TAB.ER.24 1 TAB PO BID DIABETES (Reported) Hydralazine HCl 25 MG TABLET 1 TAB PO DAILY HEART (Reported) Metformin HCl 850 MG TABLET 1 TAB PO TID DIABETES (Reported) Multiple Vitamin (Multivitamins) 1 EACH TABLET 1 TAB PO DAILY supplement ( Reported) Nifedipine (Nifedipine ER) 60 MG TAB.ER.24 1 TAB PO DAILY HEART (Reported) Olmesartan Medoxomil (Benicar) 20 MG TABLET 1 TAB PO DAILY cardiac (Reported) Oxybutynin Chloride 5 MG TABLET 1 TAB PO BID BLADDER (Reported) Simvastatin (Zocor*) 40 MG TABLET 1 TAB PO QPM CHOLESTEROL (Reported) Sitagliptin Phosphate (Januvia) 100 MG TABLET 1 TAB PO DAILY DM (Reported) Tamsulosin HCl 0.4 MG CAP.ER.24H 1 CAP PO DAILY PROSTATE (Reported) Torsemide 20 MG TABLET 2 TAB PO DAILY cardiac (Reported) Triage Note: PT SENT TO ER BY DR PERRY FOR ADMISSION OR WORK UP FOR SEPSIS , STARTED WITH CHILLS LAST PM, PT STATES THAT HE HAD CORDOVA REMOVED YESTERDAY AND THAT HE COULDN'T VOID AFTERWARDS, CALLED DR VIDALES OFFICE THIS AM AND WAS TOLD TO COME TO OFFICE AT 1600, PT HAS NO PAIN AT THIS TIME , BUT STATES THAT HE HAD TERRIBLE ABD PAIN UNTILL CORDOVA WAS PLACED BY DR PERRY. PT WAS GIVEN IV DOSE ABT IN OFFICE PRIOR TO COMING TO ER Triage Nurses Notes Reviewed? 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 Peryr. The patient presented to the ED after being sent in by Dr. Perry for possible sepsis of urological origin in the setting of urinary retention and likely reflux due to dilateted collecting system. Just yesterday Dr. Perry removed the patient's cordova catheter after having it for 2 weeks s/p the ureteral stents. Overnight, the patient experienced fever and chills and developed severe back pain and was not making urine. He returned to Dr. Perry's office where a new cordova was placed, noted to have a fever to 102F, given gentamycin and his pain resolved. In the ED the patient has no complaints of abdominal or back pain, denies fever but does feel "chilly". His cordova catheter is draining well here in the ED. (Rajeev ENGLISH,Bartolome) Past History Travel History Traveled to [place] past 21 day No Medical History Any Pertinent Medical History? see below for history Neurological: GABAPENTIN-DENIES NERVE PAIN EENT: NONE Cardiovascular: hypertension, 2 STENT PLACEMENTS VASCULAR DISEASE Respiratory: SLEEP APNEA-CPAP @ HS Gastrointestinal: NONE Hepatic: NONE Renal: STENT PLACED BILATERAL URETERS 01/03/18 Musculoskeletal: HERNIATED DISCS LEFT LEG Fx Psychiatric: NONE Endocrine: diabetes Blood Disorders: NONE Cancer(s): NONE FOSTER CARE THERAPIST/Reproductive: NONE History of MRSA: No History of VRE: No History of CDIFF: No Surgical History Surgical History: B/L ureteral stent placement on 01/03 Psychosocial History What is your primary language Nepali Tobacco Use: Never used ETOH Use: denies use Illicit Drug Use: denies illicit drug use Family History Hx Contributory? No (Bartolome Boo MD) Review of Systems Review of Systems Constitutional: Reports: chills. Denies: diaphoresis, fever, malaise, weakness. Respiratory: Denies: short of breath, sputum production. Cardiovascular: Reports: peripheral edema. Denies: chest pain. GI: Denies: abdominal pain, nausea, vomiting. Genitourinary: Reports: hematuria (DRAINING IN CORDOVA). Neurological/Psychological: Reports: headache. (Rajeev ENGLISH,Bartolome) Physical Exam Physical Exam General Appearance: well developed/nourished, no apparent distress, alert, awake , obese Head: atraumatic, normal appearance Respiratory: normal breath sounds, chest non-tender Cardiovascular: regular rate/rhythm Gastrointestinal: normal bowel sounds, soft, non-tender (Rjaeev ENGLISH,Bartolome) Core Measures ACS in differential dx? No Sepsis Present: No Sepsis Focused Exam Completed? No (Mario BLUE,Ilia Abreu) Progress Differential Diagnosis: pyelonephritis, urinary retention, UTI/pyelo Plan of Care: Orders Procedure Date/time Status Heart Healthy Diet 01/23 B Active Patient Data 01/22 2017 Active LACTIC ACID 01/[address] in observation 01/22 1958 Active ED Holding Orders 01/22 1958 Active Vital Signs 01/22 1958 Active Code Status 01/22 1958 Active Intake & Output 01/22 1751 Active BLOOD CULTURE 01/22 1659 Active URINALYSIS 01/22 1659 Complete TROPONIN LEVEL 01/22 1659 Complete LACTIC ACID 01/22 1659 Complete COMPREHENSIVE METABOLIC PANEL 01/22 1659 Complete CBC WITHOUT DIFFERENTIAL 01/22 1659 Complete EKG 01/22 1659 Active Laboratory Tests 01/22/18 1735: Urine Color YEL, Urine Clarity CLDY H, Urine pH 6.0, Ur Specific Windber 1.020, Urine Protein 100 H, Urine Ketones NEG, Urine Nitrite POS H, Urine Bilirubin NEG, Urine Urobilinogen 0.2, Ur Leukocyte Esterase LARGE H, Ur Microscopic SEDIMENT EXAMINED, Urine RBC PACKD H, Urine WBC PACKD H, Ur Epithelial Cells FEW, Urine Bacteria MANY H, Urine Hemoglobin LARGE H, Urine Glucose NEG 01/22/18 1730: Anion Gap 12, Estimated GFR 51 L, BUN/Creatinine Ratio 31.4 H, Glucose 189 H, Lactic Acid 1.0, Calcium 9.8, Total Bilirubin 0.2, AST 15 L, ALT 35, Alkaline Phosphatase 80, Troponin I 0.02, Total Protein 6.9, Albumin 4.2, Globulin 2.7, Albumin/Globulin Ratio 1.6, CBC w Diff NO MAN DIFF REQ, RBC 4.15 L, MCV 86.7, MCH 28.0, MCHC 32.3 L, RDW 17.1 H, MPV 8.2, Gran % 89.0 H, Lymphocytes % 3.7 L, Monocytes % 7.1, Eosinophils % 0.2, Basophils % 0, Absolute Granulocytes 7.9 H, Absolute Lymphocytes 0.3 L, Absolute Monocytes 0.6, Absolute Eosinophils 0, Absolute Basophils 0 Microbiology 01/22 1744 BLOOD: Blood Culture - RECD 01/22 1730 BLOOD: Blood Culture - RECD (Rajeev ENGLISH,Bartolome) Initial ED EKG: NSR, RBBB Prior EKG: unchanged (Ilia Hightower DO) Departure Departure Condition: Stable Referrals: Dung Kramer MD (PCP/Family) Departure Forms: Customer Survey General Discharge Information (Rajeev ENGLISH,Bartolome) Departure Disposition: STILL A PATIENT Clinical Impression Primary Impression: UTI (urinary tract infection) Secondary Impressions: DELMAR (acute kidney injury), Urinary retention Observation Note Spoke With: Huan Vilchis MD Physician Advisor Notified: ILIA HIGHTOWER DO Place Patient In: Non-ED OBS Care Area Rationale for Observation: My rational for observation is as follows [the patient needs IV fluids, IV antibiotics, follow the blood cultures. He was profoundly diaphoretic and concern for urosepsis was raised]. Resident Co-Sign Statement Statement: ED Attending supervision documentation- [X] I saw and evaluated the patient. I have also reviewed all the pertinent lab results and diagnostic results. I agree with the findings and the plan of care as documented in the Resident's documentation. [] I have reviewed the ED Record and agree with the Resident's documentation. [] Additions or exceptions (if any) to the Resident's note and plan are summarized below: [] 01/22/18 5:44pm I have personally seen and examined the Pt and have reviewed the plan of care with the resident. He is a 67 year old male who was sent in by Dr. Perry for urinary retention and possible sepsis work up. No acute distress. Abdomen was soft and nontender. He currently has no pain. (Ilia Hightower DO)
[2018-01-22 17:39] LABS: ABSOLUTE BASOPHIL COUNT 0 /CUMM (0.0-0.2); ABSOLUTE EOSINOPHIL COUNT 0 /CUMM (0.0-0.7); ABSOLUTE GRANULOCYTE CT 7.9 /CUMM (1.4-6.5); ABSOLUTE LYMPH COUNT 0.3 /CUMM (1.2-3.4); ABSOLUTE MONOCYTE COUNT 0.6 /CUMM (0.10-0.60); BASOPHIL % 0 % (0.0-2.0); EOSINOPHIL % 0.2 % (0-5); MEAN CORPUSCULAR HGB CONC 32.3 G/DL (33.0-37.0); MEAN CORPUSCULAR VOLUME 86.7 FL (80.0-94.0); MEAN PLATELET VOLUME 8.2 FL (7.4-10.4); PLATELET COUNT 290 /CUMM (130-400); RBC DISTRIBUTION WIDTH 17.1 % (11.5-14.5); RED BLOOD CELL CT 4.15 /CUMM (4.70-6.10); WHITE BLOOD CELL COUNT 8.8 /CUMM (4.8-10.8)
--- NOTE | 2018-01-22 20:18 | History & Physical ---
Melanie Moya 01/22/18 2018: General Information and HPI MD Statement: I have seen and personally examined JELENA WATTS and documented this H&P. The patient is a 67 year old M who presented with a patient stated chief complaint of []. Source of Information: patient Exam Limitations: no limitations History of Present Illness: 67 year old male with PMH DM, HTN, CAD with stent placement 2012, CKD 3 from bladder outlet obstruction, MAYA on CPAP hs, Gout presenting per Dr. Perry's request for fever 102, chills, and back pain. Patient underwent bilateral ureteral stent placement two weeks ago with Dr. Perry. He had a whiting catheter in place for two weeks post op. Yesterday Dr. Perry removed the whiting in his office and sent the patient home. The patient states he was unable to void and started having fever, chills, and back pain. He went to see Dr. Perry in his office today. He was found to be febrile 102; given Gentamycin and a new whiting was placed. Patient states he has BPH and that makes the whiting placement a bit traumatic. He was then sent to the ED for admission to observation. He denies n/v/d, chest pain, SOB, abdominal pain. He reports feeling much better in the ED since the whiting was placed earlier and after receiving pain medication. Allergies/Medications Allergies: Coded Allergies: No Known Allergies (01/01/18) Home Med list Allopurinol 300 MG TABLET 1 TAB PO QPM GOUT (Reported) Aspirin (Ecotrin*) 325 MG TABLET.DR 1 TAB PO DAILY HEART HEALTH (Reported) Clopidogrel Bisulfate (Clopidogrel) 75 MG TABLET 1 TAB PO DAILY BLOOD THINNER (Reported) Ergocalciferol (Vitamin D2) (Vitamin D2) 2,000 UNIT TABLET 1 TAB PO DAILY VITAMIN SUPPORT (Reported) Finasteride 5 MG TABLET 1 TAB PO DAILY PROSTATE (Reported) Gabapentin 400 MG CAPSULE 1 CAP PO TID PAIN (Reported) Glipizide (Glipizide ER) 10 MG TAB.ER.24 1 TAB PO BID DIABETES (Reported) Hydralazine HCl 25 MG TABLET 1 TAB PO DAILY HEART (Reported) Metformin HCl 850 MG TABLET 1 TAB PO TID DIABETES (Reported) Multiple Vitamin (Multivitamins) 1 EACH TABLET 1 TAB PO DAILY supplement ( Reported) Nifedipine (Nifedipine ER) 60 MG TAB.ER.24 1 TAB PO DAILY HEART (Reported) Olmesartan Medoxomil (Benicar) 20 MG TABLET 1 TAB PO DAILY cardiac (Reported) Simvastatin (Zocor*) 40 MG TABLET 1 TAB PO QPM CHOLESTEROL (Reported) Sitagliptin Phosphate (Januvia) 100 MG TABLET 1 TAB PO DAILY DM (Reported) Tamsulosin HCl 0.4 MG CAP.ER.24H 1 CAP PO DAILY PROSTATE (Reported) Torsemide 20 MG TABLET 2 TAB PO DAILY cardiac (Reported) Past History Travel History Traveled to [place] past 21 day No Medical History Neurological: GABAPENTIN-DENIES NERVE PAIN EENT: NONE Cardiovascular: hypertension, 2 STENT PLACEMENTS VASCULAR DISEASE Respiratory: SLEEP APNEA-CPAP @ HS Gastrointestinal: NONE Hepatic: NONE Renal: STENT PLACED BILATERAL URETERS 01/03/18 Musculoskeletal: HERNIATED DISCS LEFT LEG Fx Psychiatric: NONE Endocrine: diabetes Blood Disorders: NONE Cancer(s): NONE CONE CHOCOLATE DIPPER/Reproductive: NONE History of MRSA: No History of VRE: No History of CDIFF: No Surgical History Surgical History: B/L ureteral stent placement on 01/03 Past Family/Social History Psychosocial History Where do you live? Home Who Do You Live With? 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 EENTM: Reports: no symptoms. Cardiovascular: Reports: no symptoms. Respiratory: Reports: no symptoms. GI: Reports: no symptoms. Genitourinary: Reports: hematuria. Musculoskeletal: Reports: back pain. Skin: Reports: no symptoms. Neurological/Psychological: Reports: no symptoms. Exam & Diagnostic Data Last 24 Hrs of Vital Signs/I&O Vital Signs Date Time Temp Pulse Resp B/P B/P Pulse O2 O2 Flow FiO2 Mean Ox Delivery Rate 01/223 100.3 01/22 1944 99.6 88 18 144/65 96 Room Air 01/22 1658 99.0 104 20 148/78 98 Room Air Physical Exam General Appearance Alert, Oriented X3, Cooperative, morbidly obese male Skin No Rashes Skin Temp/Moisture Exam: Warm/Dry HEENT Atraumatic, PERRLA Neck Supple Cardiovascular Regular Rate, Normal S1, Normal S2, No Murmurs Lungs Clear to Auscultation Abdomen Normal Bowel Sounds, Soft, No Tenderness, obese Extremities BLE pitting edema to level of knee Assessment/Plan Assessment: 67 year old male with PMH DM, HTN, CAD with stent placement 2012, CKD 3 from bladder outlet obstruction, MAYA on CPAP hs, Gout presenting per Dr. Perry's request for fever 102, chills, and back pain. Patient underwent bilateral ureteral stent placement two weeks ago with Dr. Perry. He had a whiting catheter in place for two weeks post op. Yesterday Dr. Perry removed the whiting in his office and sent the patient home. The patient states he was unable to void and started having fever, chills, and back pain. He went to see Dr. Perry in his office today. He was found to be febrile 102; given Gentamycin and a new whiting was placed. Patient was sent to ED by Dr. Perry for admission to observation and will be cared for on the general medicine service: Problem List: 1. UTI Admission Data: VS T99.0 P104 RR20 BP148/78 Sat 98%RA Labs: WBC 8.8 H/H 11.6/36.0 Plt 290 Na 140 K4.8 BUN/Cr 44/1.4 Lactate 1.0 UA: Nit positive; leukocyte esterase positive; many bacteria ED Tx: Ceftriaxone 1g; Tylenol 1g; 1L NS; BCx pending #UTI-likely 2/2 urinary retention vs BPH -Continue Ceftriaxone -Urine C&S; taper abx appropriately -Tylenol for back pain -Coninue whiting catheter -Urology to see in AM #Chronic medical problems -CPAP for MAYA -SSI for DM -HTN home meds -Diabetic diet DVT prophylaxis: ALPS/ambulation (no chemical prophylaxis in setting of hematuria) Code status: Full code As Ranked By This Provider Problem List: 1. UTI (urinary tract infection) 2. Urinary retention 3. Chronic kidney disease Core Measures/Misc (02/18) Acute Coronary Syndrome ACS Diagnosis: No Congestive Heart Failure Congestive Heart Failure Diagnosis No Cerebrovascular Accident CVA/TIA Diagnosis: No VTE (View Protocol) VTE Risk Factors Acute Medical Illness No Mechanical VTE Prophylaxis d/t N/A MechProphylax Ordered No VTE Pharm Prophylaxis d/t Bleeding (Active) Sepsis (View protocol) Sepsis Present: No If YES complete Sepsis Event Note If YES complete Sepsis Event Note Angel Anthony 01/22/18 2137: Core Measures/Misc (02/18) Sepsis (View protocol) If YES complete Sepsis Event Note If YES complete Sepsis Event Note Resident Review Statement Resident Statement: examined this patient, discussed with mba internship, agreed with mba internship, discussed with family, reviewed EMR data (avail), discussed with nursing , discussed with case mgmt, reviewed images, amended to note Other Findings: This is a 67-year-old male with past medical history significant for obstructive sleep apnea on CPAP, GERD, coronary artery disease status post 2 stents, dual antiplatelet agents, BPH, severe urine retention from BPH, diabetes, diabetic neuropathy, hypertension, hyperlipidemia, lower extremity swelling on diuretic, chronic kidney disease secondary to bladder outlet obstruction from BPH was sent in by Dr. Perry urologist office for fever, chills, back pain and urine retention. Patient has obstructive uropathy from BPH, status post bilateral ureteral stents placed on 03 January 2018 but they have migrated resulting in DELMAR and bilateral hydroureternephrosis, admitted to [place] from January 08-January 10, taken to the OR by Dr. Perry, replace her stents. Creatinine came down 1.4 from 2. He was discharged with Whiting's catheter, advised to follow-up Dr. Perry as an outpatient. Patient followed up with Dr. Perry on 01/21/2018, Whiting's catheter was removed. However after going home patient had subjective fever, chills, bilateral back pain left more than right, could not void. He was seen by Dr. Perry this morning at his office, new Whiting's catheter was placed. Urine retention was relieved. He was noticed to have temperature 102, IM gentamicin was given in the office, sent to the hospital for admission. Patient denies any back pain status post catheter placement. However he reported chills. Whiting's catheter in place, draining dark red urine. Review of systems completely negative except for above. He denies smoking, alcohol abuse, illicit drug abuse. Vitals afebrile, heart rate 104, respiratory rate 20, blood pressure 148/70, saturating at 98 on room air. Labs WBC 8.8, hemoglobin 11.6, hematocrit 36, platelets 290 BUN 14 and creatinine 1.4 at baseline UVA positive for nitrate, esterase, bacteria, WBC, hemoglobin Received cefotaxime, 1 L fluid in the emergency room 1. Complicated UTI Patient presented from Dr. Perry's office concerning for fever 102, chills, back pain. He is status post Whiting's catheter placement and relief of urine retention. Given his fever and chills he received gentamicin. UA showed nitrate, esterase, bacteria, WBC. He did not fulfill SIRS criteria. -Observing in GEN med for complicated UTI -Most likely from urine retention and indwelling Whiting's catheter -Continue IV ceftriaxone thousand milligrams daily -Follow blood cultures 2 -Follow-up urine culture and sensitivities -Gentle hydration was given in ER - adequate pain management -Follow-up Dr. Perry for further recommendations -Continue Flomax and finasteride for BPH -Oxybutynin was stopped by Dr. Perry yesterday Chronic medical conditions Chronic kidney disease with creatinine 1.4 Diabetes mellitus Accu-Cheks and NovoLog sliding scale MAYA on CPAP Gout allopurinol 300 daily Coronary artery disease status post stents continue aspirin and Plavix Diabetic neuropathy continue gabapentin Hypertension continue hydralazin, losartan and nifedipine Hyperlipidemia continue statin 40 daily Lower extremity swelling continue torsemide 40 daily Full code Consistent carbohydrate 3 diet DVT prophylaxis Alps only given hematuria Pain pathway ordered Huan Vilchis MD 01/22/182: Core Measures/Misc (02/18) Sepsis (View protocol) If YES complete Sepsis Event Note If YES complete Sepsis Event Note Attending MD Review Statement Attending Statement Attending MD Statement: examined this patient, discuss w/resident/PA/VETERINARY MEDICINE SCIENTIST, agreed w/resident/PA/VETERINARY MEDICINE SCIENTIST Attending Assessment/Plan: Patient is seen and examined independently by me. Care plan discussed with nurses medical assistants phlebotomists and/or resident. I agree with the physical exam findings and plan of care as outlined above with the following changes and additions. 67 yo M with history of CAD s/p stents x2, HTN, DM, MAYA on CPAP nightly, BPH, CKD with obstructive uropathy s/p bilateral stenting 01/03/18, and was last admitted 01/08-01/10/18 for obstructive uropathy with bilateral hydronephrosis and worsening of renal function. Dr. Perry took patient to OR for repositioning bilateral ureteral stents during last admission. Patient had his Whiting removed at his office. During the night, he has fever, chills, back pain and unable to urinate. He returned to Dr. Perry's office today and has Whiting replaced. He is noted to have T102 and was given gentamicin at Dr. Perry's office. On exam, abdomen: soft, bowel sound presented, obese, nontender. No CV tenderness. In the ED, his back pain has resolved. T max 99.6. WBC 8.8. BUN/Cr 44/1.4. UA shows many RBC/WBC/bacteria. He got Tylenol 1g, ceftriaxone 1 g IV and NS 1 L in the ED. Patient is placed on observation in Gen Med for UTI and urinary retention. Check urine and blood cultures. Start ceftriaxone. Urology consult. Huan Vilchis MD FACP
[2018-01-22 22:00] VITALS: BP 142/72
[2018-01-23 06:34] VITALS: BP 192/72
[2018-01-23 07:38] VITALS: BP 134/82
--- NOTE | 2018-01-23 08:03 | PN- Housestaff ---
Ba Benitez 01/23/18 0745: Subjective Follow-up For: Urinary tract infection, BPH , Urinary retention Subjective: Patient seen and examined at bedside. He feeling good , had bowel movement yesterday. He denies fever, chills, backache, chest pain, SOB, palpitaion, abdominal pain, constipation, diarrhea, burning micturation. Review of Systems Constitutional: Reports: see HPI. Objective Last 24 Hrs of Vital Signs/I&O Vital Signs Date Time Temp Pulse Resp B/P B/P Pulse O2 O2 Flow FiO2 Mean Ox Delivery Rate 01/23 1444 100.3 81 18 128/58 97 Room Air 01/23 1158 80 128/70 01/23 0907 80 126/68 01/23 0907 80 126/68 01/23 0906 80 126/68 01/23 0738 72 134/82 01/23 0638 100.7 01/23 0634 102.9 110 20 192/72 92 Room Air 01/23 0528 102.9 01/23 0204 100.8 01/23 0122 103.0 01/23 0107 103.0 01/23 0023 101.9 01/23 0017 101.9 01/23 0001 103 98 01/22 2315 101.7 01/22 2240 89 98 01/22 2227 101.7 01/22 2200 102.0 99 20 142/72 94 Room Air 01/22 2128 100.3 01/22 2113 100.3 01/22 1944 99.6 88 18 144/65 96 Room Air Intake & Output 01/23 1600 01/23 0800 01/23 0000 Intake Total 413 706 7728 Output Total 3650 1250 1075 Balance -2810 -325 -75 Intake, IV 125 1000 Intake, Oral 840 800 0 Output, Urine 3650 1250 1075 Patient 342 lb 342 lb Weight Physical Exam General Appearance: Alert, Oriented X3, Cooperative, No Acute Distress Assessment/Plan Assessment: 67-year-old male with past medical history of obstructive sleep apnea on CPAP, coronary artery disease status post stent(on antiplatelet ), GERD, BPH, chronic kidney disease due to BPH, diabetes, diabetic neuropathy, hypertension, hyperlipidemia, lower extremity swelling presented emergency department with fever, chills, back pain, urinary retention. Patient denies chest pain, palpitation, abdominal pain, diarrhea, constipation, alcohol abuse, smoking, illicit drugs. Patient admitted 3 weeks back to [facility] with urinary retention, Dr. Perry placed bilateral ureteral stents but up to 1 week the stent displaced and the patient again came to [facility] the procedure revised and the stent replaced. Patient came to Dr. Perry clinic for Vargas's catheter removal, on January 21, But after going home the patient started having fever, chills and back pain. Blood cultures positive for gram-negative sunny. Urinalysis positive for urine nitrates and protein plus sediments, bacteria, leukocyte esterase . Blood culture was positive for gram negetive sunny. *Problems list: *UTI *Pyelonephritis Plan: UTI/urosepsis: He having past medical history of diabetes which prone him to complicated urinary tract infection .He is currently had procedures like bilateral ureteric stent and recent catheterization can cause urinary tract infection. His clinical presentation like fever, backache, positive blood culture for gram- negative sunny, and urinalysis nitrite and nitrate positive test suggested that he has UTI. His lactate level is normal, he is oriented, and vitally stable except temperature of 100.3. So I cannot strongly agree on urosepsis. He will be observed for 24-[address] abdomen and pelvis done with contrast which showed bilateral hydronephrosis, relatively stable. There are bilateral ureteric stents. The stent on the right is more cephalad than compared to the prior study, but appears to be within the proximal ureter. The stent on the left is unchanged. -There is bladder wall thickness as well as lymphadenopathy and inflammation around the bladder. -Diverticulosis without diverticulitis is also seen as well as hiatal hernia. - Urinary bladder dilation and wall thickness could be associated with chronic BPH. We will continue antibiotic, hydration, pain medication. *Continue antibiotic *Urology consultation appreciated , he recommended observation for next 24 to 48 hours. *Temperature monitoring, today last temerature is 100.3 F. *Blood cultures positive for gram-negative rods and vancomycin one stae dose is given. Now he will be continued on ceftriaxone 1000mg daily for infection. *Continue medication for diabetes, hypertension, obstructive sleep apnea *CPAP for obstructive sleep apnea *Full code *GI/DVT prophylaxis Problem List: 1. Back pain 2. Chronic kidney disease 3. Hydronephrosis 4. UTI (urinary tract infection) Pain Ratin Pain Location: no pain right now Pain Goal: Remain pain free Pain Plan: Pain management pathway Tomorrow's Labs & Rationales: Dioni ALVES Manik 01/23/18 1115: Attending MD Review Statement Attending Statement Attending MD Statement: examined this patient, discuss w/resident/PA/[employer] MEDIA [employer]ER, agreed w/resident/PA/[employer] MEDIA BUYER, discussed with family, reviewed EMR data (avail), discussed with nursing, discussed with case mgmt, reviewed images, amended to note Attending Assessment/Plan: 67 yo M with history of CAD s/p stents x2, HTN, DM, MAYA on CPAP nightly, BPH, CKD with obstructive uropathy s/p bilateral stenting 01/03/18, and was last admitted 01/08-01/10/18 for obstructive uropathy with bilateral hydronephrosis and worsening of renal function. Dr. Perry took patient to OR for repositioning bilateral ureteral stents during last admission. Patient had his Vargas removed at his office recently. Overnight he had fever, chills, back pain. He is noted to have T102. Patient is admitted to inpatient medical services in [facility] for complicated UTI and urinary retention with gram negative bacteremia. Follow up urine and blood cultures. C/w ceftriaxone. Obtain CT abd/pelvis, Urology consult. GI/DVT prophylaxis full code.
[2018-01-23 08:20] LABS: ABSOLUTE BASOPHIL COUNT 0 /CUMM (0.0-0.2); ABSOLUTE EOSINOPHIL COUNT 0 /CUMM (0.0-0.7); ABSOLUTE GRANULOCYTE CT 9.2 /CUMM (1.4-6.5); ABSOLUTE LYMPH COUNT 0.3 /CUMM (1.2-3.4); ABSOLUTE MONOCYTE COUNT 0.7 /CUMM (0.10-0.60); BASOPHIL % 0.1 % (0.0-2.0); EOSINOPHIL % 0 % (0-5); MEAN CORPUSCULAR HGB 28.3 PG (27.0-31.0); MEAN CORPUSCULAR HGB CONC 32.8 G/DL (33.0-37.0); MEAN CORPUSCULAR VOLUME 86.2 FL (80.0-94.0); MEAN PLATELET VOLUME 9.4 FL (7.4-10.4); PLATELET COUNT 225 /CUMM (130-400); RBC DISTRIBUTION WIDTH 16.6 % (11.5-14.5); RED BLOOD CELL CT 3.51 /CUMM (4.70-6.10); WHITE BLOOD CELL COUNT 10.2 /CUMM (4.8-10.8)
[2018-01-23 08:35] LABS: HEMATOCRIT 30.3 % (42-52)
--- NOTE | 2018-01-23 08:39 | PN- Student ---
Subjective Subjective: is a 67 y/o male with a PMH of T2 DM, HTN, CAD, stage 3 CKD, MAYA, gout, & BPH. He presented to the ER with fever (102 F), chills, and back pain 2 weeks post bilateral ureteral stent placement. Prior to admission replaced his whiting catheter and gave him Gentamycin. Allopurinol 300 MG TABLET 1 TAB PO QPM GOUT (Reported) Aspirin (Ecotrin*) 325 MG TABLET.DR 1 TAB PO DAILY HEART HEALTH (Reported) Clopidogrel Bisulfate (Clopidogrel) 75 MG TABLET 1 TAB PO DAILY BLOOD THINNER (Reported) Ergocalciferol (Vitamin D2) (Vitamin D2) 2,000 UNIT TABLET 1 TAB PO DAILY VITAMIN SUPPORT (Reported) Finasteride 5 MG TABLET 1 TAB PO DAILY PROSTATE (Reported) Gabapentin 400 MG CAPSULE 1 CAP PO TID PAIN (Reported) Glipizide (Glipizide ER) 10 MG TAB.ER.24 1 TAB PO BID DIABETES (Reported) Hydralazine HCl 25 MG TABLET 1 TAB PO DAILY HEART (Reported) Metformin HCl 850 MG TABLET 1 TAB PO TID DIABETES (Reported) Multiple Vitamin (Multivitamins) 1 EACH TABLET 1 TAB PO DAILY supplement ( Reported) Nifedipine (Nifedipine ER) 60 MG TAB.ER.24 1 TAB PO DAILY HEART (Reported) Olmesartan Medoxomil (Benicar) 20 MG TABLET 1 TAB PO DAILY cardiac (Reported) Simvastatin (Zocor*) 40 MG TABLET 1 TAB PO QPM CHOLESTEROL (Reported) Sitagliptin Phosphate (Januvia) 100 MG TABLET 1 TAB PO DAILY DM (Reported) Tamsulosin HCl 0.4 MG CAP.ER.24H 1 CAP PO DAILY PROSTATE (Reported) Torsemide 20 MG TABLET 2 TAB PO DAILY cardiac (Reported) NKDA Alcohol - drinks alcohol a couple days a week limited to 2 drinks maxixum Tobacco - no history of tobacco use No recreational drug use Family History: * father - , "blood clot" * mother - , colon cancer * sister - , bone cancer * children - 4x, all healthy Objective Objective: Review of Systems: * fell on ice and fractured his right fibula; coexisting arthritis in right foot Physical exam * normal S1 S2 heart sounds were heard upon ascultation without any murmurs or gallops * lung sounds were normal upon ascultation without any signs of crackles, rales, or wheezes. * No CVA tenderness upon palpitation UA in the ED showed many RBC, WBC, and bacteria Blood cultures grew gram negative rods Today his temperature has ranged from 100-103 F BUN (44) & Creatinine (1.4) are elevated Results Results: Laboratory Tests 01/23/18 0608: Anion Gap 9, Estimated GFR > 60, BUN/Creatinine Ratio 29.2 H, CBC w Diff Pending, WBC Pending, RBC Pending, Hgb Pending, Hct Pending, MCV Pending, MCH Pending, MCHC Pending, RDW Pending, Plt Count Pending, MPV Pending 01/22/18 2150: Lactic Acid 1.2 01/22/18 1735: Urine Color YEL, Urine Clarity CLDY H, Urine pH 6.0, Ur Specific [place] 1.020, Urine Protein 100 H, Urine Ketones NEG, Urine Nitrite POS H, Urine Bilirubin NEG, Urine Urobilinogen 0.2, Ur Leukocyte Esterase LARGE H, Ur Microscopic SEDIMENT EXAMINED, Urine RBC PACKD H, Urine WBC PACKD H, Ur Epithelial Cells FEW, Urine Bacteria MANY H, Urine Hemoglobin LARGE H, Urine Glucose NEG 01/22/18 1730: Anion Gap 12, Estimated GFR 51 L, BUN/Creatinine Ratio 31.4 H, Glucose 189 H, Lactic Acid 1.0, Calcium 9.8, Total Bilirubin 0.2, AST 15 L, ALT 35, Alkaline Phosphatase 80, Troponin I 0.02, Total Protein 6.9, Albumin 4.2, Globulin 2.7, Albumin/Globulin Ratio 1.6, CBC w Diff NO MAN DIFF REQ, RBC 4.15 L, MCV 86.7, MCH 28.0, MCHC 32.3 L, RDW 17.1 H, MPV 8.2, Gran % 89.0 H, Lymphocytes % 3.7 L, Monocytes % 7.1, Eosinophils % 0.2, Basophils % 0, Absolute Granulocytes 7.9 H, Absolute Lymphocytes 0.3 L, Absolute Monocytes 0.6, Absolute Eosinophils 0, Absolute Basophils 0 Microbiology 01/22 2113 URINE ROUT: Urine Culture - COLB 01/23 1744 BLOOD: Blood Culture - RES GRAM NEGATIVE RODS 01/22 1730 BLOOD: Blood Culture - RECD Assessment/Plan Assessment: is a 67 y/o male with a PMH of T2 DM, HTN, CAD, stage 3 CKD, MAYA, gout, & BPH. He presented to the ER with fever (102 F), chills, and back pain 2 weeks post bilateral ureteral stent placement. Plan: The patient had a fever this morning for which he was given tylenol for; the patient felt better after recieving the tylenol. UA in the ED showed many RBC, WBC, and bacteria * ceftriaxone 1g IV, normal saline 1L, tylenol 1g
[2018-01-23 09:01] LABS: GRANULOCYTE % 90.3 % (42.2-75.2)
--- NOTE | 2018-01-23 09:16 | Cons- Urology ---
General Information and HPI Consulting Request Date of Consult: 01/23/18 Requested By: Dioni ENGLISH,Ben Reason for Consult: UTI: bilat. hydronephrosis grade 5/[address] Source of Information: patient, family, old records Exam Limitations: no limitations History of Present Illness: 67 year old recently in hospital with ARF: due to prostate obstruction resulting in bilat. renal obstruction-chronic hydro and renal failure: BILAT. stents placed with resolution of arf. voiding trial failed and whiting inserted with 1.8 liters drained (ucx sent). Pt sent to ER with temp 102F-overall improved while in ER. Admitted to med. for sepsis. Allergies/Medications Allergies: Coded Allergies: No Known Allergies (01/01/18) Home Med List: Allopurinol 300 MG TABLET 1 TAB PO QPM GOUT (Reported) Aspirin (Ecotrin*) 325 MG TABLET.DR 1 TAB PO DAILY HEART HEALTH (Reported) Clopidogrel Bisulfate (Clopidogrel) 75 MG TABLET 1 TAB PO DAILY BLOOD THINNER (Reported) Ergocalciferol (Vitamin D2) (Vitamin D2) 2,000 UNIT TABLET 1 TAB PO DAILY VITAMIN SUPPORT (Reported) Finasteride 5 MG TABLET 1 TAB PO DAILY PROSTATE (Reported) Gabapentin 400 MG CAPSULE 1 CAP PO TID PAIN (Reported) Glipizide (Glipizide ER) 10 MG TAB.ER.24 1 TAB PO BID DIABETES (Reported) Hydralazine HCl 25 MG TABLET 1 TAB PO DAILY HEART (Reported) Metformin HCl 850 MG TABLET 1 TAB PO TID DIABETES (Reported) Multiple Vitamin (Multivitamins) 1 EACH TABLET 1 TAB PO DAILY supplement ( Reported) Nifedipine (Nifedipine ER) 60 MG TAB.ER.24 1 TAB PO DAILY HEART (Reported) Olmesartan Medoxomil (Benicar) 20 MG TABLET 1 TAB PO DAILY cardiac (Reported) Simvastatin (Zocor*) 40 MG TABLET 1 TAB PO QPM CHOLESTEROL (Reported) Sitagliptin Phosphate (Januvia) 100 MG TABLET 1 TAB PO DAILY DM (Reported) Tamsulosin HCl 0.4 MG CAP.ER.24H 1 CAP PO DAILY PROSTATE (Reported) Torsemide 20 MG TABLET 2 TAB PO DAILY cardiac (Reported) Current Medications: Current Medications Sig/Sarah Start time Last Medication Dose Route Stop Time Status Admin Acetaminophen 1,000 MG ONCE ONE 01/22 2130 DC 01/22 IV 01/22 Acetaminophen 0 .STK-MED ONE 01/22 2121 DC IV Acetaminophen 650 MG Q6P PRN 01/22 2115 AC 01/23 PO 0528 Acetaminophen 0 .STK-MED ONE 01/23 1756 DC IV Acetaminophen 1,000 MG ONCE ONE 01/22 1700 DC 01/22 N/A 1 UNIT IV 01/22 1714 1758 Allopurinol 300 MG QPM 01/23 2100 AC PO Aspirin Buffered 325 MG DAILY 01/23 09 AC PO Atorvastatin Calcium 40 MG 1700 01/23 1700 AC PO Ceftriaxone Sodium 1,000 MG DAILY 01/23 900 AC IV Ceftriaxone Sodium 1,000 MG DAILY 01/22 2115 DC IV Ceftriaxone Sodium 0 .STK-MED ONE 01/22 1951 DC .ROUTE Ceftriaxone Sodium 1,000 MG ONCE ONE 01/22 1945 DC 01/22 IV 01/22 Clopidogrel Bisulfate 75 MG DAILY 01/23 09 AC PO Finasteride 5 MG DAILY 01/23 900 AC PO Gabapentin 400 MG TID 01/23 2116 AC 01/23 PO 0014 Heparin Sodium 5,000 UNIT Q8 01/23 1400 CAN (Porcine) SC Hydralazine HCl 25 MG DAILY 01/23 09 AC PO Insulin Aspart 0 TIDAC/HS 01/22 2115 AC 01/22 SC 2128 Losartan Potassium 50 MG DAILY 01/23 900 AC PO Multivitamins 1 TAB DAILY 01/23 09 AC Therapeutic PO Nifedipine 60 MG DAILY 01/23 900 AC PO Oxycodone HCl 5 MG Q6P PRN 01/22 2115 AC PO Sodium Chloride 1,000 ML BOLUS ONE 01/22 1715 DC 01/22 IV 01/22 1814 1821 Tamsulosin HCl 0.4 MG DAILY 01/23 09 AC PO Torsemide 40 MG DAILY 01/23 0900 AC PO Vancomycin HCl 1,000 MG ONCE ONE 01/23 0545 DC 01/23 Sodium Chloride 250 ML IV 01/23 0644 0616 Past History Medical History Blood Transfusion Hx: No Neurological: GABAPENTIN-DENIES NERVE PAIN EENT: NONE Cardiovascular: hypertension, 2 STENT PLACEMENTS VASCULAR DISEASE Respiratory: SLEEP APNEA-CPAP @ HS Gastrointestinal: NONE Hepatic: NONE Renal: STENT PLACED BILATERAL URETERS 01/03/18 Musculoskeletal: HERNIATED DISCS LEFT LEG Fx Psychiatric: NONE Endocrine: diabetes Blood Disorders: NONE Cancer(s): NONE 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 Home Who Do You Live With? self Services at Home: None Primary Language: Turkmen Smoking Status: Former Smoker (quit 1982; 1ppd x 10years) ETOH Use: occasional use Illicit Drug Use: denies illicit drug use Functional Ability ADLs Independent: dressing, eating, toileting, bathing. Ambulation: independent IADLs Independent: shopping, housework, finances, food prep, telephone, transportation , medication admin. 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 no Review of Systems Review of Systems Constitutional: Reports: see HPI, chills, diaphoresis, fever. EENTM: Denies: no symptoms. Cardiovascular: Denies: no symptoms. Respiratory: Denies: no symptoms. Genitourinary: Reports: see HPI. Musculoskeletal: Denies: no symptoms. Skin: Denies: no symptoms. Neurological/Psychological: Denies: no symptoms. Exam & Diagnostic Data Vital Signs and I&O Vital Signs Date Time Temp Pulse Resp B/P B/P Pulse O2 O2 Flow FiO2 Mean Ox Delivery Rate 01/23 0738 72 134/82 01/23 0638 100.7 01/23 0634 102.9 110 20 192/72 92 Room Air 01/23 0528 102.9 01/23 0204 100.8 01/23 0122 103.0 01/23 0107 103.0 01/23 0023 101.9 01/23 0017 101.9 01/23 0001 103 98 01/22 2315 101.7 01/22 2240 89 98 01/22 2227 101.7 01/22 2200 102.0 99 20 142/72 94 Room Air 01/22 2128 100.3 01/22 2113 100.3 01/22 1944 99.6 88 18 144/65 96 Room Air 01/22 1658 99.0 104 20 148/78 98 Room Air Intake & Output 01/23 1600 01/23 0800 01/23 0000 01/22 1600 01/22 0800 01/22 0000 Intake Total 925 1000 Output Total 1250 1075 Balance -325 -75 Intake, IV 125 1000 Intake, Oral 800 0 Output, Urine 1250 1075 Patient 342 lb Weight Physical Exam General Appearance: well developed/nourished, no apparent distress, obese Head: atraumatic Eyes: Bilateral: normal appearance. Neck: normal inspection Respiratory: normal breath sounds Cardiovascular: regular rate/rhythm Gastrointestinal: normal bowel sounds, soft, non-tender Rectal: normal exam Back: no vertebral tenderness Extremities: normal inspection, swelling Neurologic/Psych: no motor/sensory deficits, awake, alert, oriented x 3 Skin: intact Reproductive: Normal male genitalia Last 24 Hours of Labs: Laboratory Tests 01/23 01/22 0608 2150 Chemistry Sodium (137 - 145 mmol/L) 136 L Potassium (3.5 - 5.1 mmol/L) 4.9 Chloride (98 - 107 mmol/L) 108 H Carbon Dioxide (22 - 30 mmol/L) 19 L Anion Gap (5 - 16) 9 BUN (9 - 20 mg/dL) 35 H Creatinine (0.7 - 1.2 mg/dL) 1.2 Estimated GFR (>60 ml/min) > 60 BUN/Creatinine Ratio (7 - 25 %) 29.2 H Lactic Acid (0.7 - 2.1 mmol/L) 1.2 Hematology CBC w Diff NO MAN DIFF REQ WBC (4.8 - 10.8 /CUMM) 10.2 RBC (4.70 - 6.10 /CUMM) 3.51 L Hgb (14.0 - 18.0 G/DL) 9.9 L Hct (42 - 52 %) 30.3 L MCV (80.0 - 94.0 FL) 86.2 MCH (27.0 - 31.0 PG) 28.3 MCHC (33.0 - 37.0 G/DL) 32.8 L RDW (11.5 - 14.5 %) 16.6 H Plt Count (130 - 400 /CUMM) 225 MPV (7.4 - 10.4 FL) 9.4 Gran % (42.2 - 75.2 %) 90.3 H Lymphocytes % (20.5 - 51.1 %) 2.9 L Monocytes % (1.7 - 9.3 %) 6.7 Eosinophils % (0 - 5 %) 0 Basophils % (0.0 - 2.0 %) 0.1 Absolute Granulocytes (1.4 - 6.5 /CUMM) 9.2 H Absolute Lymphocytes (1.2 - 3.4 /CUMM) 0.3 L Absolute Monocytes (0.10 - 0.60 /CUMM) 0.7 H Absolute Eosinophils (0.0 - 0.7 /CUMM) 0 Absolute Basophils (0.0 - 0.2 /CUMM) 0 01/22 01/22 1735 1730 Chemistry Sodium (137 - 145 mmol/L) 140 Potassium (3.5 - 5.1 mmol/L) 4.8 Chloride (98 - 107 mmol/L) 107 Carbon Dioxide (22 - 30 mmol/L) 21 L Anion Gap (5 - 16) 12 BUN (9 - 20 mg/dL) 44 H Creatinine (0.7 - 1.2 mg/dL) 1.4 H Estimated GFR (>60 ml/min) 51 L BUN/Creatinine Ratio (7 - 25 %) 31.4 H Glucose (65 - 99 mg/dL) 189 H Lactic Acid (0.7 - 2.1 mmol/L) 1.0 Calcium (8.4 - 10.2 mg/dL) 9.8 Total Bilirubin (0.2 - 1.3 mg/dL) 0.2 AST (17 - 59 U/L) 15 L ALT (21 - 72 U/L) 35 Alkaline Phosphatase (< 127 U/L) 80 Troponin I (<0.11 ng/ml) 0.02 Total Protein (6.3 - 8.2 g/dL) 6.9 Albumin (3.5 - 5.0 g/dL) 4.2 Globulin (1.9 - 4.2 gm/dL) 2.7 Albumin/Globulin Ratio (1.1 - 2.2 %) 1.6 Hematology CBC w Diff NO MAN DIFF REQ WBC (4.8 - 10.8 /CUMM) 8.8 RBC (4.70 - 6.10 /CUMM) 4.15 L Hgb (14.0 - 18.0 G/DL) 11.6 L Hct (42 - 52 %) 36.0 L MCV (80.0 - 94.0 FL) 86.7 MCH (27.0 - 31.0 PG) 28.0 MCHC (33.0 - 37.0 G/DL) 32.3 L RDW (11.5 - 14.5 %) 17.1 H Plt Count (130 - 400 /CUMM) 290 MPV (7.4 - 10.4 FL) 8.2 Gran % (42.2 - 75.2 %) 89.0 H Lymphocytes % (20.5 - 51.1 %) 3.7 L Monocytes % (1.7 - 9.3 %) 7.1 Eosinophils % (0 - 5 %) 0.2 Basophils % (0.0 - 2.0 %) 0 Absolute Granulocytes (1.4 - 6.5 /CUMM) 7.9 H Absolute Lymphocytes (1.2 - 3.4 /CUMM) 0.3 L Absolute Monocytes (0.10 - 0.60 /CUMM) 0.6 Absolute Eosinophils (0.0 - 0.7 /CUMM) 0 Absolute Basophils (0.0 - 0.2 /CUMM) 0 Urines Urine Color (YEL,AMB,STR) YEL Urine Clarity (CLEAR) CLDY H Urine pH (5.0 - 8.0) 6.0 Ur Specific [place] (1.001 - 1.035) 1.020 Urine Protein (NEG,<30 MG/DL) 100 H Urine Ketones (NEG) NEG Urine Nitrite (NEG) POS H Urine Bilirubin (NEG) NEG Urine Urobilinogen (0.1 - 1.0 EU/dl) 0.2 Ur Leukocyte Esterase (NEG) LARGE H Ur Microscopic SEDIMENT EXAMINED Urine RBC (0 - 5 /HPF) PACKD H Urine WBC (0 - 2 /HPF) PACKD H Ur Epithelial Cells (NONE,FEW) FEW Urine Bacteria (NEG/NONE) MANY H Urine Hemoglobin (NEG) LARGE H Urine Glucose (N MG/DL) NEG Imaging Results: PATIENT: JELENA WATTS PRESENT AGE: 67 PATIENT ACCOUNT NO: [id number] : 51 LOCATION: [facility] ORDERING PHYSICIAN: Kalin HEARN SERVICE DATE: 01/08/181201 EXAM TYPE: CAT - CT ABD & PELVIS W/O IV CONTRAS EXAMINATION: CT ABDOMEN AND PELVIS WITHOUT CONTRAST CLINICAL INFORMATION: 67-year-old male presented with abdominal pain. Status post bilateral ureteric stent placement done on 01/03/2018. COMPARISON: Operative radiographs were obtained at the time of bilateral ureteric stent placement done on 01/03/2018. TECHNIQUE: Multidetector volumetric imaging was performed from the superior aspect of the liver through the pubic symphysis. Sagittal and coronal reformatted images were obtained on the technologist's workstation. DLP: 1555.77 mGy-cm FINDINGS: LUNG BASES: Hypoventilatory changes are present at both lung bases. Atherosclerotic disease is noted within the coronary arteries. LIVER, GALLBLADDER, AND BILIARY TREE: The liver is normal in size, shape, and attenuation. No focal hepatic lesion or biliary ductal dilatation is present. The gallbladder is unremarkable with no evidence of radiopaque gallstones, gallbladder wall thickening, or obvious pericholecystic inflammatory changes. PANCREAS: Partially fatty replaced. SPLEEN: Unremarkable. Accessory splenic tissue is noted around the hilum. ADRENAL GLANDS: Bilaterally minimally nodular without evidence of any discrete mass. KIDNEYS AND URETERS: [id number] bilateral hydroureteronephrosis is present with ureteric dilatation seen to the level of the urinary bladder. Extrarenal pelvis is noted bilaterally. Both ureters appear quite tortuous along their entire course. Previously placed bilateral internal ureteric stent appears to have migrated inferiorly with the superior tip on the right seen within the proximal ureter at the level of mid part of L4 vertebral body while the superior tip of the left internal ureteric stent is noted at the level of superior endplate of L5 vertebral body. The inferior ends of both ureteric stents are within the urinary bladder, abutting the lateral gibson inside the lumen of the bladder. BLADDER: There is a Whiting catheter present with suboptimal distention and apparent urinary bladder wall thickening. There are significant inflammatory changes noted around the urinary bladder consistent with superimposed infection, inflammation or combination thereof. Focal lesion within the bladder is not excluded. GASTROINTESTINAL TRACT: Small sliding hiatal hernia is noted. The stomach, small and large bowel loops are decompressed. Colonic diverticulosis related changes are noted within the large bowel without any CT features of superimposed acute diverticulitis. The appendix is visualized and is unremarkable at right lower quadrant of the abdomen. ABDOMINAL WALL: No significant hernia is appreciated. LYMPH NODES: Normal VASCULAR: Mild diffuse atherosclerotic disease is noted within the aorta and its branches without aneurysm formation. PELVIC VISCERA: There is no free fluid and/or free air present. The prostate does not appear to be enlarged. OSSEOUS STRUCTURES: No suspicious lytic or scrotal abnormalities. Multilevel degenerative spondylosis is seen within the lower lumbar spine. Degenerative changes are also noted at both SI joints. IMPRESSION: 1. [id number] bilateral hydroureteronephrosis. Evidence of bilateral internal ureteric stents. The superior end of the right stent is located within the proximal right ureter, and the left stent within the mid part of the left ureter, as described above. 2. The urinary bladder shows apparent diffuse wall thickening likely secondary to suboptimal distention. There is a Whiting catheter identified. The lower end of both ureteric stents are seen within the lumen of the urinary bladder. Significant nonspecific inflammatory changes are noted around the urinary bladder which likely represent superimposed infection, inflammation or combination thereof. Focal lesion within the urinary bladder is not excluded. 3. Small sliding hiatal hernia. 4. Mild nodularity of both adrenal glands without any discrete mass. 5. Multilevel degenerative spondylosis of lower lumbar spine and degenerative changes at both SI joints. Assessment/Plan Assessment/Plan Pt with urinary obstruction and sepsis:felt better post whiting insertion in office but sent to ER for admission to receive iv hydration/abx. Clinically better in ER but overnight developed fever 103: Now admitted for sepsis and requires IV abx/IVf. If no improvement in 24-48 hours, would repeat ct abd/ pelvis: Whiting inserted by me, no further surgical intervention recommended at this time. Will monitor closesly. Copies To: Luis Antonio Perry MD Consult Acknowledgment - Thank you for your consult request. 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 Clinically better in ER but overnight developed fever 103: Now admitted for sepsis and requires IV abx/IVf. If no improvement in 24-48 hours, would repeat ct abd/ pelvis: Whiting inserted by me, no further surgical intervention recommended at this time. Will monitor closesly.
--- NOTE | 2018-01-23 13:28 | CT SCAN REPORT ---
EXAMINATION: CT ABDOMEN AND PELVIS WITH CONTRAST CLINICAL INFORMATION: Hydronephrosis. Assess for obstruction status post stent placement. COMPARISON: CT scan of the abdomen and pelvis 01/08/2018. Images 01/09/2018. TECHNIQUE: Multidetector volumetric imaging was performed of the abdomen and pelvis following IV administration of 95 mL of Optiray 320 intravenous contrast. Sagittal and coronal reformatted images were obtained on the technologist's workstation. DLP: 1548.99 mGy-cm FINDINGS: LUNG BASES: There are linear atelectatic changes at the lower zones bilaterally. LIVER, GALLBLADDER, AND BILIARY TREE: The liver is normal in size, shape, and attenuation. No focal hepatic lesion or biliary ductal dilatation is present. The gallbladder is unremarkable with no evidence of radiopaque gallstones, gallbladder wall thickening, or obvious pericholecystic inflammatory changes. PANCREAS: The pancreas is moderately atrophic and fatty replaced. SPLEEN: The spleen is normal in size. There is a splenule adjacent to the inferior part of the spleen. ADRENAL GLANDS: The mild nodular appearance of the adrenal glands bilaterally stable. KIDNEYS AND URETERS: There is bilateral hydronephrosis. This is not significantly changed compared to the prior study. The ureters are dilated bilaterally extending to the level of the bladder. There are bilateral prominent extrarenal pelves. On the right, the 2. tip of the previously placed ureteric stent is more cephalad compared to the prior study, but appears to be in the proximal ureter. The stent on the left is unchanged. Both stents extend into the urinary bladder, in a similar position compared to the prior study. There is no perinephric stranding. There are no radiodense renal calculi. There are small areas of low attenuation toward the lower pole of the left kidney which measure 1.3 and 0.9 cm, with Hounsfield units consistent with simple cysts. BLADDER: The urinary bladder is decompressed. A Vargas catheter is noted in position. There is a small amount of intraluminal air. The wall of the bladder is relatively thick, measuring 2 cm, slightly increased compared to the prior study. There is some increase in the pericystic stranding and compared the prior study. GASTROINTESTINAL TRACT: There is a small hiatal hernia. The stomach and loops of small bowel are unremarkable. The appendix is normal. There is moderate stool within the large bowel. There are diverticulosis changes in the proximal sigmoid colon, without evidence of acute diverticulitis. There is no evidence of ileus or inflammation. ABDOMINAL WALL: No significant hernia is appreciated. LYMPH NODES: There are mildly prominent lymph nodes around the superior aspect of the urinary bladder. There is no abdominal lymphadenopathy. There are a few mesenteric lymph nodes. VASCULAR: There are atheromatous calcifications of the aorta. No aneurysms are demonstrated. PELVIC VISCERA: As described above, there are inflammatory changes around the urinary bladder. The prostate gland is nonenlarged. OSSEOUS STRUCTURES: There are multilevel spondylitic changes in the spine. There are no suspicious lytic or sclerotic areas. IMPRESSION: 1. The study redemonstrates bilateral hydronephrosis, relatively stable. There are bilateral ureteric stents. The stent on the right is more cephalad than compared to the prior study, but appears to be within the proximal ureter. The stent on the left is unchanged. 2. The bladder wall is thickened and there are relatively extensive inflammatory changes around the bladder with some lymphadenopathy, consistent with an inflammatory process. A Vargas catheter is noted in position. 3. There is diverticulosis without evidence of acute diverticulitis. 4. There is a small sliding hiatal hernia.
[2018-01-23 14:44] VITALS: BP 128/58
[2018-01-23 22:19] VITALS: BP 121/68
[2018-01-24 07:23] VITALS: BP 120/60
[2018-01-24 08:16] LABS: ABSOLUTE BASOPHIL COUNT 0 /CUMM (0.0-0.2); ABSOLUTE EOSINOPHIL COUNT 0.2 /CUMM (0.0-0.7); ABSOLUTE GRANULOCYTE CT 4.5 /CUMM (1.4-6.5); ABSOLUTE LYMPH COUNT 0.6 /CUMM (1.2-3.4); ABSOLUTE MONOCYTE COUNT 0.7 /CUMM (0.10-0.60); BASOPHIL % 0.5 % (0.0-2.0); EOSINOPHIL % 3.4 % (0-5); GRANULOCYTE % 73.9 % (42.2-75.2); HEMATOCRIT 29.8 % (42-52); MEAN CORPUSCULAR HGB 28.5 PG (27.0-31.0); MEAN CORPUSCULAR HGB CONC 33.2 G/DL (33.0-37.0); MEAN PLATELET VOLUME 9.1 FL (7.4-10.4); PLATELET COUNT 217 /CUMM (130-400); RBC DISTRIBUTION WIDTH 17.2 % (11.5-14.5); RED BLOOD CELL CT 3.47 /CUMM (4.70-6.10); WHITE BLOOD CELL COUNT 6.1 /CUMM (4.8-10.8)
--- NOTE | 2018-01-24 13:32 | PN- Housestaff ---
See Addendum Subjective Follow-up For: UTI, Urosepsis Subjective: Patient seen and examined at bedside. He had no complaint. He denies chest pain, palpitation, fever, chills, abdominal pain, diarrhea, constipation, burning micturition. Review of Systems Constitutional: Reports: see HPI. Objective Last 24 Hrs of Vital Signs/I&O Vital Signs Date Time Temp Pulse Resp B/P B/P Pulse O2 O2 Flow FiO2 Mean Ox Delivery Rate 01/24 1534 98.9 71 20 118/60 95 Room Air 01/24 0917 66 120/60 01/24 0915 20 120/60 01/24 0914 66 120/60 01/24 0914 66 120/60 01/24 0723 98.5 66 20 120/60 92 01/23 2219 99.7 95 20 121/68 95 Room Air Intake & Output 01/24 1600 01/24 0800 01/24 0000 Intake Total 740 240 480 Output Total 3700 1000 1000 Balance -2960 -760 -520 Intake, Oral 740 240 480 Number 0 Bowel Movements Output, Urine 3700 1000 1000 Physical Exam General Appearance: Alert, Oriented X3, Cooperative, No Acute Distress Assessment/Plan Assessment: 67-year-old male with past medical history of obstructive sleep apnea on CPAP, coronary artery disease status post stent(on antiplatelet ), GERD, BPH, chronic kidney disease due to BPH, diabetes, diabetic neuropathy, hypertension, hyperlipidemia, lower extremity swelling presented emergency department with fever, chills, back pain, urinary retention. Patient denies chest pain, palpitation, abdominal pain, diarrhea, constipation, alcohol abuse, smoking, illicit drugs. Patient admitted 3 weeks back to [facility] with urinary retention, Dr. Perry placed bilateral ureteral stents but up to 1 week the stent displaced and the patient again came to [facility] the procedure revised and the stent replaced. Patient came to Dr. Perry clinic for Vargas's catheter removal, on January 21, But after going home the patient started having fever, chills and back pain. Blood cultures positive for gram-negative sunny. Urinalysis positive for urine nitrates and protein plus sediments, bacteria, leukocyte esterase . Blood culture was positive for gram negetive sunny. *Problems list: *UTI *Pyelonephritis Plan: UTI/urosepsis: He having past medical history of diabetes which prone him to complicated urinary tract infection .He is currently had procedures like bilateral ureteric stent and recent catheterization can cause urinary tract infection. His clinical presentation like fever, backache, positive blood culture for gram- negative sunny, and urinalysis nitrite and nitrate positive test, positive urine culture for gram-negative sunny and gram-positive cocci, suggested that he has UTI. His lactate level is normal, he is oriented, and vitally stable except temperature of 100.3. So I cannot strongly agree on urosepsis. He will be observed for 24hours. CT abdomen and pelvis done with contrast which showed bilateral hydronephrosis, relatively stable. There are bilateral ureteric stents. The stent on the right is more cephalad than compared to the prior study, but appears to be within the proximal ureter. The stent on the left is unchanged. -There is bladder wall thickness as well as lymphadenopathy and inflammation around the bladder. -Diverticulosis without diverticulitis is also seen as well as hiatal hernia. - Urinary bladder dilation and wall thickness could be associated with chronic BPH. We will continue antibiotic, hydration, pain medication. *Anticipated discharge tomorrow *Will discharge him on oral antibiotic *Continue IV antibiotic for now *Temperature monitoring, today last temerature is 98.5 Fahrenheit. *Blood cultures positive for gram-negative rods and vancomycin one stae dose is given. Now he will be continued on ceftriaxone 1000mg daily for infection. *Urine culture is also positive for gram-negative sunny, *Continue medication for diabetes, hypertension, obstructive sleep apnea *CPAP for obstructive sleep apnea *Full code *GI/DVT prophylaxis Problem List: 1. UTI (urinary tract infection) 2. Hydronephrosis Pain Ratin Pain Location: No pain Pain Goal: Remain pain free Pain Plan: Pain management pathway Tomorrow's Labs & Rationales: No labs
--- NOTE | 2018-01-24 15:30 | Patient Discharge Instructions ---
Discharge Instructions General Discharge Information You were seen/treated for: UTI, Special Instructions: *Follow up with your Urologist with one week after discharge from hospital *Incase of medical attention please conatact primary care physician -Keep clean body hygene Diet Continue normal diet: Yes Recommended Diet: Diabetic Additional DIET Information: DIABETIC CC2 Diet Activity Full Activity/No Limits: Yes Acute Coronary Syndrome Inclusion Criteria At DC or during hospital stay patient has or had the following: ACS DIAGNOSIS No Discharge Core Measures Meds if any: Prescribed or Continued at Discharge Meds if any: NOT Prescribed or Continued at Discharge Congestive Heart Failure Inclusion Criteria At DC or during hospital stay patient has or had the following: CHF DIAGNOSIS No Discharge Core Measures Meds if any: Prescribed or Continued at Discharge Meds if any: NOT Prescribed or Continued at Discharge Cerebrovascular accident Inclusion Criteria At DC or during hospital stay patient has or had the following: CVA/TIA Diagnosis No Discharge Core Measures Meds if any: Prescribed or Continued at Discharge Meds if any: NOT Prescribed or Continued at Discharge Venous thromboembolism Inclusion Criteria VTE Diagnosis No VTE Type NONE VTE Confirmed by (Test) NONE Discharge Core Measures - Per Current guidelines, there needs to be overlap - treatment for the first 5 days of Warfarin therapy. - If discharged on Warfarin prior to 5 days of - overlap therapy, the patient will need to be - assessed for post discharge needs including - *Post discharge parental anticoagulation - *Warfarin and/or parental anticoagulation education - *Follow up date to check INR post discharge At least 5 days overlap therapy as Inpatient No Meds if any: Prescribed or Continued at Discharge Note: Overlap Therapy is Warfarin and Anticoagulant Meds if any: NOT Prescribed or Continued at Discharge
[2018-01-24 15:34] VITALS: BP 118/60
--- NOTE | 2018-01-24 18:44 | Discharge Summary ---
Visit Information Visit Dates Admission Date: 01/23/18 Discharge Date: 01/25/2018 Hospital Course Course Attending Physician: Ben Wheatley MD Primary Care Physician: Dung Kramer MD Other Care Providers: Urologist Dr. Perry Consulting Request: Consulting Specialty: Urology Hospital Course: 67 yo M with history of CAD s/p stents x2, HTN, DM, MAYA on CPAP nightly, BPH, CKD with obstructive uropathy s/p bilateral stenting 01/03/18, and was last admitted 01/08-01/10/18 for obstructive uropathy with bilateral hydronephrosis and worsening of renal function. Dr. Perry took patient to OR for repositioning bilateral ureteral stents during last admission. Patient had his Whiting removed at his office. During the night, he has fever, chills, back pain and unable to urinate. He returned to Dr. Perry's office today and has Whiting replaced. He is noted to have T102 and was given gentamicin at Dr. Perry's office. ED course: Vitals: Temperature 100.3, pulse 104, respiratory rate: 20, BP: 148/78, oxygen saturation: 98%. Labs: WBC count 9.0, hemoglobin 11.6, hematocrit 36.0, platelet count 290, sodium 140, potassium 4.8, BUN 44, creatinine 1.4, glucose 189, BUN/creatinine ratio 31.4, anion gap 12, lactic acid 1.0, AST 15, ALT 35, troponin 0 0.02 Blood and urine cultures were obtained ED. patient received 1 dose of vancomycin in ED. SIRS 2/2 complicated UTI 2/2 Whiting catheter associated On presentation patient was meeting SIRS criteria 2 out of 4, temperature 103, pulse 110 and his urine culture was positive with E. coli. Later on patient's blood culture came back positive with E. coli. Patient was treated with IV hydration and IV antibiotics with ceftriaxone. Urology consult was obtained and recommendations were followed. With IV antibiotics patient's condition improved. Patient's temperature subsided and his WBC count came back to lower normal limit. Patient was discharged on Keflex to complete 2 weeks course. Patient was instructed to follow his primary care physician in 1 week and also his urologist within 1 week. History of CAD status post stent placement: Continued his clopidogrel and aspirin. History of hypertension hyperlipidemia: We continued his atorvastatin and antihypertensive medications including losartan, nifedipine and hydralazine. History of gout: Continued allopurinol. History of diabetes: During the hospital stay patient's Accu-Cheks were done and he was placed on insulin NovoLog according to sliding scale. His blood sugar remained under control during hospital stay. History of peripheral neuropathy: Continued gabapentin. History of BPH: Continued Flomax DVT prophylaxis: Mechanical CODE STATUS: Full code Allergies: Coded Allergies: No Known Allergies (01/01/18) Disposition Summary Disposition Principal Diagnosis: Complicated UTI Additional Diagnosis: History of CKD History of CAD status post stent placement History of hypertension hyperlipidemia History of diabetes History of BPH Discharge Disposition: home or self care Discharge Instructions General Discharge Information Code Status: Full Code Patient's Diet: Diabetic diet Patient's Activity: Self-limited Follow-Up Instructions/Appts: Follow-up with your primary care physician in 1 week. Follow-up with your urologist in 1 week. Medications at Discharge Discharge Medications: Continue taking these medications: Aspirin (Ecotrin*) 325 MG TABLET.DR 1 Tablet ORAL DAILY Comments: LAST TAKEN: 01/25/18 @ 9 AM Simvastatin (Zocor*) 40 MG TABLET 1 Tablet ORAL Every night Comments: LIPITOR GIVEN Last Taken: 01/24/18 Time: 5 PM Ergocalciferol (Vitamin D2) (Vitamin D2) 2,000 UNIT TABLET 1 Tablet ORAL DAILY Comments: NOT GIVEN IN HOSPITAL Hydralazine HCl (Hydralazine HCl) 25 MG TABLET 1 Tablet ORAL DAILY Qty = 56 Comments: Last Taken: 01/25/18 Time: 9 AM Nifedipine (Nifedipine ER) 60 MG TAB.ER.24 1 Tablet ORAL DAILY Qty = 28 Comments: Last Taken: 01/25/18 Time: 12 PM Gabapentin (Gabapentin) 400 MG CAPSULE 1 Capsule ORAL THREE TIMES DAILY Qty = 84 Comments: Last Taken: 01/25/18 Time: 12:00 PM Clopidogrel Bisulfate (Clopidogrel) 75 MG TABLET 1 Tablet ORAL DAILY Qty = 28 Comments: LAST TAKEN: 01/25/18 @ 9 AM Allopurinol (Allopurinol) 300 MG TABLET 1 Tablet ORAL Every night Qty = 28 Comments: Last Taken: 01/24/18 Time: 8 PM Tamsulosin HCl (Tamsulosin HCl) 0.4 MG CAP.ER.24H 1 Capsule ORAL DAILY Qty = 28 Comments: Last Taken: 01/25/18 Time: 9 AM Finasteride (Finasteride) 5 MG TABLET 1 Tablet ORAL DAILY Qty = 28 Comments: Last Taken: 01/25/18 Time: 9 AM Metformin HCl (Metformin HCl) 850 MG TABLET 1 Tablet ORAL THREE TIMES DAILY Qty = 84 Comments: NOT GIVEN IN HOSPITAL Glipizide (Glipizide ER) 10 MG TAB.ER.24 1 Tablet ORAL TWICE DAILY Qty = 56 Comments: NOT GIVEN IN HOSPITAL Sitagliptin Phosphate (Januvia) 100 MG TABLET 1 Tablet ORAL DAILY Comments: NOT TAKEN IN HOSPITAL Torsemide (Torsemide) 20 MG TABLET 2 Tablet ORAL DAILY Comments: LAST TAKEN: 01/25/18 @ 9AM Olmesartan Medoxomil (Benicar) 20 MG TABLET 1 Tablet ORAL DAILY Comments: NOT GIVEN IN HOSPITAL Multiple Vitamin (Multivitamins) 1 EACH TABLET 1 Tablet ORAL DAILY Comments: LAST TAKEN: 01/25/18 @ 9 AM Oxybutynin Chloride (Oxybutynin Chloride) 5 MG TABLET 1 Tablet ORAL TWICE DAILY Qty = 56 This prescription has been renewed Start taking the following new medications: Cephalexin (Cephalexin) 500 MG CAPSULE 1 Capsule ORAL 4 TIMES A DAY Qty = 44 No Refills Copies To: Williams ENGLISH,Tila Perry MD,Luis Antonio Attending MD Review Statement Documenting Attending: Dioni ENGLISH,Ben Other Findings: Patient is here for complicated UTI (catheter associated) meeting SIRS criteria and urinary retention s/p exchange of whiting catheter with gram negative bacteremia. No new complaints. Feels much better. Follow up urine culture pansensitive. Change to PO abx for total of 2 weeks. Urology follow up after discharge in 1-2 week for repeat Urinalysis and culture.
[2018-01-24 22:13] VITALS: BP 144/62
[2018-01-25 05:30] VITALS: BP 120/68; BP 142/84
--- NOTE | 2018-01-25 07:34 | PN- Housestaff ---
Ba Benitez 01/25/18 0734: Subjective Follow-up For: UTI Subjective: Patient seen and examined at bedside. He is having no active complaint. He is eating and drinking well, he had a bowel movement. He denies fever, chill, constipation, diarrhea, abdominal pain, palpitation, cough, burning micturition. Review of Systems Constitutional: Reports: see HPI. Objective Last 24 Hrs of Vital Signs/I&O Vital Signs Date Time Temp Pulse Resp B/P B/P Pulse O2 O2 Flow FiO2 Mean Ox Delivery Rate 01/25 0530 99.0 64 20 142/84 93 Room Air 01/25 0035 64 93 01/24 2308 70 95 01/24 2213 99.0 63 20 144/62 97 Room Air 01/24 1534 98.9 71 20 118/60 95 Room Air 01/24 0917 66 120/60 01/24 0915 20 120/60 01/24 0914 66 120/60 01/24 0914 66 120/60 Intake & Output 01/25 1600 01/25 0800 01/25 0000 Intake Total 600 Output Total 1100 800 Balance -1100 -200 Intake, Oral 600 Output, Urine 1100 800 Physical Exam General Appearance: Alert, Oriented X3, Cooperative, No Acute Distress Assessment/Plan Assessment: 67-year-old male with past medical history of obstructive sleep apnea on CPAP, coronary artery disease status post stent(on antiplatelet ), GERD, BPH, chronic kidney disease due to BPH, diabetes, diabetic neuropathy, hypertension, hyperlipidemia, lower extremity swelling presented emergency department with fever, chills, back pain, urinary retention. Patient denies chest pain, palpitation, abdominal pain, diarrhea, constipation, alcohol abuse, smoking, illicit drugs. Patient admitted 3 weeks back to [facility] with urinary retention, Dr. Perry placed bilateral ureteral stents but up to 1 week the stent displaced and the patient again came to [facility] the procedure revised and the stent replaced. Patient came to Dr. Perry clinic for Vargas's catheter removal, on January 21, But after going home the patient started having fever, chills and back pain. Blood cultures positive for gram-negative sunny. Urinalysis positive for urine nitrates and protein plus sediments, bacteria, leukocyte esterase . Blood culture was positive for gram negetive sunny. *Problems list: *UTI *Pyelonephritis Plan: UTI/urosepsis: He having past medical history of diabetes which prone him to complicated urinary tract infection .He is currently had procedures like bilateral ureteric stent and recent catheterization can cause urinary tract infection. His clinical presentation like fever, backache, positive blood culture for gram- negative sunny, and urinalysis nitrite and nitrate positive test, positive urine culture for gram-negative sunny and gram-positive cocci, suggested that he has UTI. His lactate level is normal, he is oriented, and vitally stable except temperature of 100.3. So I cannot strongly agree on urosepsis. He will be observed for 24hours. CT abdomen and pelvis done with contrast which showed bilateral hydronephrosis, relatively stable. There are bilateral ureteric stents. The stent on the right is more cephalad than compared to the prior study, but appears to be within the proximal ureter. The stent on the left is unchanged. -There is bladder wall thickness as well as lymphadenopathy and inflammation around the bladder. -Diverticulosis without diverticulitis is also seen as well as hiatal hernia. - Urinary bladder dilation and wall thickness could be associated with chronic BPH. We will continue antibiotic, hydration, pain medication. *Anticipated discharge today on oral antibiotic cephalaxin 500mg q6 for 11 days. *Blood cultures positive for gram-negative rods and vancomycin one stae dose is given.O ne dose of vancomycin given, than IV ceftriaxone given, eill discharge him on cphalxin. *Urine culture is also positive for gram-negative sunny, *Continue medication for diabetes, hypertension, obstructive sleep apnea *CPAP for obstructive sleep apnea *Full code *GI/DVT prophylaxis Problem List: 1. UTI (urinary tract infection) Pain Ratin Pain Location: No pain Pain Goal: Remain pain free Pain Plan: Pain management pathway Tomorrow's Labs & Rationales: No labs DioniBen sotelo 01/25/18 1138: Attending MD Review Statement Attending Statement Attending MD Statement: examined this patient, discuss w/resident/PA/CENTER MGR, agreed w/resident/PA/CENTER MGR, discussed with family, reviewed EMR data (avail), discussed with nursing, discussed with case mgmt, reviewed images, amended to note Attending Assessment/Plan: Patient is here for complicated UTI and urinary retention with gram negative bacteremia. No new complaints. Feels much better. Follow up urine culture pansensitive. Change to PO abx for total of 2 weeks. Urology follow up after discharge in 1-2 week for repeat Urinalysis and culture.
[2018-01-25] MEDS ORDERED: CEPHALEXIN500 M3 PO (10:55)
[2018-01-25] MEDS ORDERED: OXYBUTYNIN CHLOR5 M2 PO (10:57)
[2018-01-25 15:30] VITALS: BP 110/60
== END 2018-01-25 16:45 | DRG 699 ==
LOC: ERH 16:53 → ERHI 19:58 → 2NB 19:58 → CANRESERV 20:50 → ENRESERV 20:50 → 2NB 21:43 → ENTRNSPT 21:48 → EDTRNSPT 21:53 → EDTRNSPTSTS 21:53 → 2NB 22:02 → CMPTRNSPT 22:10 → 2NB 01-23 07:06 → ENPENDDIS 01-25 14:25 → 2NB 01-25 16:45
PROVIDERS: Hospitalist; Physician Assistant Medical; Preventive Medicine Addiction Medicine
DX: T83.511A Infection and inflammatory reaction due to indwelling urethral catheter, initial encounter (principal); Z68.41 Body mass index [BMI] 40.0-44.9, adult; N13.30 Unspecified hydronephrosis; R65.10 Systemic inflammatory response syndrome (SIRS) of non-infectious origin without acute organ dysfunction; N39.0 Urinary tract infection, site not specified; Z79.84 Long term (current) use of oral hypoglycemic drugs; G47.33 Obstructive sleep apnea (adult) (pediatric); E66.9 Obesity, unspecified; I25.10 Atherosclerotic heart disease of native coronary artery without angina pectoris; N18.3 Chronic kidney disease, stage 3 (moderate); N40.1 Benign prostatic hyperplasia with lower urinary tract symptoms; R33.8 Other retention of urine; E11.40 Type 2 diabetes mellitus with diabetic neuropathy, unspecified; E78.5 Hyperlipidemia, unspecified; R60.0 Localized edema; Z96.0 Presence of urogenital implants; I12.9 Hypertensive chronic kidney disease with stage 1 through stage 4 chronic kidney disease, or unspecified chronic kidney disease; E11.22 Type 2 diabetes mellitus with diabetic chronic kidney disease; Z98.61 Coronary angioplasty status; Z87.891 Personal history of nicotine dependence; M10.9 Gout, unspecified; B96.20 Unspecified Escherichia coli [E. coli] as the cause of diseases classified elsewhere; B95.2 Enterococcus as the cause of diseases classified elsewhere
CPT/HCPCS: 2NBP; 36592; 74177; 81001; 82436; 87040; 87086; 87147; 93005; 93010; 96374; 96375; J0131; J0696; J3370; J7040

== ENCOUNTER 2018-02-05 03:19 | Inpatient (IN) | payer OTHER, MEDICARE ==
[~2018-02-05] VITALS: Ht 188 cm; Wt 155.1 kg
[~2018-02-05 03:19] MED LIST changes: +CEPHALEXIN500 M3 PO
[2018-02-05] MEDS ORDERED: GLIPIZIDE ER10 M1 PO (08:27)
--- NOTE | 2018-02-05 09:57 | PN- Urology ---
Surgical Brief Attending Note Brief Attending Note: Pt. post TURP (bipolar). Pt on CBI with multiple co-morbidities, Will need 23 hrs obs for CBI and post op monitoring.
--- NOTE | 2018-02-05 10:58 | Cons- Medical ---
See Addendum Huan Healy MD 02/05/18 1049: General Information and HPI Consulting Request Date of Consult: 02/05/18 Requested By: Luis Antonio Perry MD History of Present Illness: 67 year old man with past medical history of BPH, obstructive uropathy, chronic kidney disease, hypertension, hyperlipidemia, [id number] diabetes mellitus, and coronary artery disease status post 2 cardiac stents 5 years ago descend observation status post TURP for continuous bladder irrigation. Medical consult was placed for management of patient's multiple medical comorbidities. Patient was admitted to the same day surgical suite at [facility] on for which he underwent a TURP. Post procedure patient states that he feels well and has no complaints. 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 self Services at Home: None Primary Language: Belarusian Functional Ability ADLs Independent: dressing, eating, toileting, bathing. Ambulation: independent IADLs Independent: shopping, housework, finances, food prep, telephone, transportation , medication admin. Exam & Diagnostic Data Last 24 Hrs of Vital Signs/I&O Vital Signs Date Time Temp Pulse Resp B/P B/P Pulse O2 O2 Flow FiO2 Mean Ox Delivery Rate 02/05 1459 98.2 74 18 145/74 96 Room Air 02/05 1201 97.5 66 18 143/77 96 Room Air Intake & Output 02/05 1600 02/05 0800 02/05 0000 Intake Total 560 Output Total 500 Balance 60 Intake, IV 200 Intake, Oral 360 Number 0 Bowel Movements Output, Urine 500 Patient 154.221 kg Weight Physical Exam General Appearance: well developed/nourished, no apparent distress, alert, awake , anxious Head: atraumatic, normal appearance Eyes: Bilateral: normal appearance, PERRL, EOMI. Ears, Nose, Throat: normal pharynx, normal ENT inspection, hearing grossly normal Neck: normal inspection, supple, full range of motion Respiratory: normal breath sounds, no respiratory distress, quiet respiration Cardiovascular: regular rate/rhythm Peripheral Pulses: 2+ radial (R), 2+ radial (L), 2+ dorsalis pedis (R), 2+ dorsalis pedis (L) Gastrointestinal: normal bowel sounds, soft, non-tender Extremities: normal inspection, normal range of motion, no edema Neurologic/Psych: no motor/sensory deficits, awake, alert, oriented x 3, normal mood/affect Last 24 Hrs of Labs/Ashu: Laboratory Tests 02/05/18 1020: Estimated GFR 30 L, BUN/Creatinine Ratio 30.9 H Assessment/Plan Assessment/Plan 67-year-old man with multiple medical problems significant for BPH and chronic kidney disease placed under observation post operatively for TURP for obstructive uropathy secondary to an enlarged prostate. Patient has a mild elevation in his creatinine with known chronic kidney disease and BPH. Nephrotoxic agents should be held including losartan and Lasix for now. Accu-Cheks and pre-meal NovoLog should be started while in hospital. Problem list -BPH status post TURP, on continuous bladder irrigation -Acute kidney injury, likely post renal -Chronic kidney disease, stage III -Hypertension -Hyperlipidemia -Ecy-upgpinv-agcburuda diabetes mellitus -Coronary artery disease status post CATE 2 (2012) -MAYA, on CPAP -Morbid obesity Recommendations -Post procedure care per urology -Nocturnal CPAP -Accu-Cheks 3 times a day before meals/at bedtime -Continue IV fluids -Start NovoLog pre-meal sliding scale -Continue other medications as ordered -Hold losartan/Lasix for acute kidney injury, restart as tolerated/needed -Monitor renal function -Antibiotics per urology -Follow-up cultures and sensitivities -DVT prophylaxis Consult Acknowledgment - Thank you for your consult request. William ENGLISH,Angela 02/05/18 1130: General Information and HPI Allergies/Medications Home Med List: Allopurinol 300 MG TABLET 1 TAB PO QPM GOUT (Reported) Aspirin (Ecotrin*) 325 MG TABLET. 1 TAB PO DAILY HEART HEALTH (Reported) Atorvastatin Calcium 20 MG TABLET 20 MG PO 1700 ACID REFLUX Ciprofloxacin HCl (Cipro) 500 MG TABLET 500 MG PO BID ANTIBIOTIC, INFECTION Clopidogrel Bisulfate (Clopidogrel) 75 MG TABLET 1 TAB PO DAILY BLOOD THINNER (Reported) Docusate Sodium 100 MG CAPSULE 100 MG PO DAILY NEEDED PRN CONSTIPATION Ergocalciferol (Vitamin D2) (Vitamin D2) 2,000 UNIT TABLET 1 TAB PO DAILY VITAMIN SUPPORT (Reported) Finasteride 5 MG TABLET 1 TAB PO DAILY PROSTATE (Reported) Gabapentin 400 MG CAPSULE 1 CAP PO TID PAIN (Reported) Glipizide (Glipizide ER) 10 MG TAB.ER.24 1 TAB PO DAILY diabetes (Reported) Hydralazine HCl 25 MG TABLET 1 TAB PO DAILY HEART (Reported) Mag Hydrox/Al Hydrox/Simeth (Mag-Al Plus Suspension) 200 MG-200 MG-20 MG/5 ML ORAL.SUSP 30 ML PO Q6P PRN HEARTBURN Metformin HCl 850 MG TABLET 1 TAB PO TID DIABETES (Reported) Multiple Vitamin (Multivitamins) 1 EACH TABLET 1 TAB PO DAILY supplement ( Reported) Nifedipine (Nifedipine ER) 60 MG TAB.ER.24 1 TAB PO DAILY HEART (Reported) Olmesartan Medoxomil (Benicar) 20 MG TABLET 1 TAB PO DAILY cardiac (Reported) Omeprazole 20 MG CAPSULE.DR 40 MG PO DAILY AC ACID REFLUX Oxycodone HCl/Acetaminophen (Percocet 5-325 MG Tablet) 5 MG-325 MG TABLET 2 TAB PO Q4P PRN ABDOMINAL PAIN Simvastatin (Zocor*) 40 MG TABLET 1 TAB PO QPM CHOLESTEROL (Reported) Sitagliptin Phosphate (Januvia) 100 MG TABLET 1 TAB PO DAILY DM (Reported) Tamsulosin HCl 0.4 MG CAP.ER.24H 1 CAP PO DAILY PROSTATE (Reported) Torsemide 20 MG TABLET 2 TAB PO DAILY cardiac (Reported) Zolpidem Tartrate 5 MG TABLET 5 MG PO AT BEDTIME NEEDED PRN SLEEP Assessment/Plan Consult Acknowledgment - Thank you for your consult request. Attending MD Review Statement Attending Statement Attending MD Statement: examined this patient, discuss w/resident/PA/POULTRY FARMER, agreed w/resident/PA/POULTRY FARMER, reviewed EMR data (avail), discussed with nursing, amended to note Attending Assessment/Plan: 67 y/o F with pmh sig for DM, HTN, CAD with stent placement 2012, CKD 3 from bladder outlet obstruction, MAYA on CPAP hs, Gout had TURP done today by Dr. Perry. Patient has been admitted twice to [facility] with a hematuria, acute renal failure as well as UTI. He has acute renal failure secondary to urinary retention from obstruction. Today he underwent TURP and medical consult is obtained for the comanagement of his medical conditions. Patient himself feels well. He denies any complaints. CBI is running. His creatinine shows a bump on today's labs. He denies any recent fevers, chills, cold, nausea, vomiting, diarrhea or constipation. He claims that his blood pressure and blood sugar are normally under control. vss. on exam; aox3, nad. obese. cv; s1,s2, rrr resp; clear abd; soft, nt, bs+ CBI running Laboratory Tests 02/05 1020 Chemistry BUN (9 - 20 mg/dL) 68 H Creatinine (0.7 - 1.2 mg/dL) 2.2 H Estimated GFR (>60 ml/min) 30 L BUN/Creatinine Ratio (7 - 25 %) 30.9 H Assessment and recommendations: 67 y/o F with pmh sig for DM, HTN, CAD with stent placement 2012, CKD 3 from bladder outlet obstruction, MAYA on CPAP hs, Gout patient is status post TURP. By Dr. Perry today postop day #0. Medical consult is obtained for the management of medical conditions. Slight bump in creatinine, therefore patient has acute on chronic renal failure likely secondary to urinary retention and obstruction. Recommend holding losartan and Lasix for now. Will recheck labs in the morning and reevaluate. Can continue nifedipine. Continue IV fluids. For patient's diabetes, recommend starting the patient on sliding scale insulin and will check Accu-Cheks q before meals and at bedtime. I will hold oral hypoglycemics at this time. Resume Plavix when okay with urology. Continue the rest of the home medications. DVT prophylaxis: ALPS. Thank you for allowing us to participate in the care of your patient, will follow along with you.
[2018-02-05 12:01] VITALS: BP 143/77
[2018-02-05 14:59] VITALS: BP 145/74
--- NOTE | 2018-02-05 16:25 | Operative Report ---
Operative/Inv Procedure Report Surgery Date: 02/05/18 Name of Procedure: cystoscopy: STANDard BIPOLAR TURP. Pre-Operative Diagnosis: BPH with retention, ARF, bilateral grade 4/4 hydronephrosis Post-Operative Diagnosis: same Estimated Blood Loss: less than 50ml Surgeon/Help Desk Consultant: Luis Antonio Perry MD Anesthesia: laryngeal mask airway Drains: 22 Fr. 3-way whiting with NS CBI Specimens: prostate chips Tourniquet: none Complications: none Operative Indication: BPH retention, and renal failure. Operative/Procedure Note Note: The patient was taken to the operating room and moved onto the OR table in supine position. Timeout was performed, with the patient awake, in order to confirm the patient's correct identity, procedure, laterality, anesthesia, antibiotics, and other pertinent perioperative information. After adequate anesthesia and antibiotics, the patient was then placed in lithotomy stirrups, draped and prepped in the usual surgical fashion. A 22 Chilean cystoscope sheath with the 30 angle lens was inserted into the ureathra without difficulty. Upon entering the bladder, the bladder was noted to be free of tumor, and free of stone. Both ureteral orifices were in their orthotopic position, with clear reflux from the left ureter. The right ureter had a stent in place, which was grasped with an aligator grasper, and extracted intact, and without difficulty. The cystoscope was then re-inserted into the bladder. The right ureteral orifice was intubated with an 8 Chilean cone-tipped catheter. Retrograde pyelogram was performed revealing a filling defect in the mid-proximal ureter consistent with large stone, and distal narrowing consistent with edema/ stricture. On fluoroscopy, there was mild proximal hydronephrosis. The cone- tipped catheter was removed, and then the right orifice was intubated with a 0.035 safety gluidewire. The Glidewire was advanced into the right ureter, and advanced into the right renal pelvis, with fluoroscopic visualization. Over the gluide wire, a flexible ureteroscope was rail-roaded, and advanced with fluoroscopic visualization into the right renal pelvis, with difficulty past the strictured area. The ureteroscope was then removed leaving the Glidewire in place. Over the Glidewire a 10 Chilean by 35 cm ureteral access sheath was gently railroaded over the Glidewire. With fluoroscopic visualization, gentle dilatation with advancement of the ureteral access sheath was accomplished without difficultyt. The obturator was removed leaving the sheath in place. The gluidewire was left in place, and the flexible ureteroscope was advanced via the access sheath without difficulty. The large ureter stone was visualized, and under direct visualization the 400 g holmium YAG laser fiber was inserted through the ureteroscope. With the laser fiber in direct contact with the stone the yag laser was activated, and laser lithotrypsy under direct visualization was performed. The ureter stone was completely pulvorized into multiple fragments, confirmed on fluoroscopy. Several framents were extracted and sent for analysis. The mucosa around the obstructing stone was noted to be edematous, possibly strictured, therefore requiring insertion of a new stent to allow proper healing. The flexible ureteroscope was then advanced, and used to examin the renal pelvis, and all calyxes. Before removing the ureteroscope, the gluidewire was re-ninserted into the ureteroscope to be used for subsequent stent placement. With the flexible ureteroscope slowly retracted, he entire length of the ureter was aslo visualize in order to confim no significantly sized stone framents, nor tumor was seen on the way out. The Glidewire was then backloaded onto a 22 Chilean cystoscope sheath with a 30 angle lens. The cystoscope was then reinserted into the bladder where the right orifice was visualized with the Glidewire and place. Over this Glidewire a 6 x 24 Bard onlay stent was inserted with the proximal coil visualized in the renal pelvis with fluoroscopy and the distal coil in the bladder cystoscopically the Glidewire was removed. Fluoroscopy was then performed in order to reveal the stent to be in proper place. The bladder was then drained via the cystoscope which was then removed. An 18 tanzanian whiting was then inserted without difficulty. The patient tolerated both procedures well, and was taken to the recovery room in satisfactory condition. Once discharged, the pt. will have pain medication, antibiotics and instructions to follow up in one or 4-6 week's time Discharge Disposition: Critical Care Unit CC: Luis Antonio Perry MD
--- NOTE | 2018-02-05 16:34 | Operative Report ---
Operative/Inv Procedure Report Surgery Date: 02/05/18 Name of Procedure: TURP Pre-Operative Diagnosis: bph retention with arfs Post-Operative Diagnosis: same Estimated Blood Loss: 50ml to 100ml Surgeon/External Grinder: Luis Antonio Perry MD Anesthesia: laryngeal mask airway Drains: fr. 3-way with NS cbi Specimens: prostate chips Complications: none Operative/Procedure Note Note: The patient was taken to the operating room and placed on the OR table in supine position. Timeout was performed, with the patient awake, to confirm correct identify,procedure, anesthesia, ,antibiotics, and other pertinent perioperative information. After adequate anesthesia and antibiotics, the old Whiting catheter was removed. The patient was then placed in lithotomy stirrups using yellowfin stirrups. The patient was then draped and prepped in the usual surgical fashion. A 26 Liberian standard bipolar resectoscope sheath with a 30 angle lens, and the 24 Liberian loop, was inserted into the urethra, and then advanced into the bladder without difficulty. The bladder was sevely trbeculated with large clots were Ellix evacuated out. With a clearer vision, bladder was noted to be severely trabeculated, with no evidence of tumor, nor stone. Additionally, the prostate was hypervascular consistent with significant growth. The bipolar resectoscope was then retracted to the level of the jose montanum. Under direct visualization the 24 Liberian loop was then deployed beyond the scope. Under direct visualization, and using the cutting current, the left lobe of the prostate was resected from the 2:00 to the 6 o'clock position to the level of the fibromuscular capsule. Using coag current, spot cauterization was performed in order to achieve good hemostasis of the prostate. The loop was then extended once again using cutting current to resect the right side of the prostate from the 10:00 to the 6 o'clock position to the level of the fibromuscular capsule. The large middle lobe was then resected to the fibromuscular capsule. Spot cauterization, using the bipolar coag. current was then performed in order to achieve good hemostasis. Maintaining the position of the resectoscope at the level of the vera montanum the apical tissue was resected as well on both sides. The external sphincter was preserved. The bladder was then re-entered via the resectoscope, and the prostate chips were irrigated out using tumey evacuation. Once all the prostate chips were removed, the bladder was re-evaluating and noted to have no untoward injury. Additionally, the prostate channel was noted to have good hemostasis, with a wide open channel. The resectoscope was removed with the bladder full. A 22 Liberian couvalier three-way Whiting catheter was inserted into the bladder without difficulty, draining clear fluid. The bladder was again copiously irrigated via the whiting to ensure patency/ The 30 mL balloon was then filled, and continuous bladder irrigation with normal saline was initiated. Clear and easy drainage of NS from the main port was confirmed with CBI. All sponge needle and instrument count were correct at the end of the case. The patient tolerated the procedure well and was then taken to the recovery room in satisfactory condition. Discharge Disposition: PACU CC: Luis Antonio Perry MD
[2018-02-05 21:37] VITALS: BP 144/74
[2018-02-06 06:33] VITALS: BP 154/82
[2018-02-06] MEDS ORDERED: DOCUSATE SODIU100 M3 PO (07:50)
[2018-02-06] MEDS ORDERED: ZOLPIDEM TARTRAT5 M1 PO (07:50)
[2018-02-06] MEDS ORDERED: ATORVASTATIN CA20 M1 PO (07:50)
[2018-02-06] MEDS ORDERED: MAG-AL PLUS SUS30 ML PO (07:50)
[2018-02-06] MEDS ORDERED: PERCOCET 5-3251 EACH PO (07:50)
[2018-02-06] MEDS ORDERED: CIPRO500 M1 PO (07:50)
[2018-02-06] MEDS ORDERED: OMEPRAZOLE20 M2 PO (07:50)
--- NOTE | 2018-02-06 08:33 | PN- Medicine Consult ---
See Addendum Monet ENGLISH,Huan 02/06/18 0826: Assessment/PlanMedical Consult Assessment/Plan Assessment: 67-year-old man with multiple medical problems significant for BPH and chronic kidney disease placed under observation post operatively for TURP for obstructive uropathy secondary to an enlarged prostate. Overnight patients fingersticks have ranges between 171-294 requiring small amounts of premeal insulin. Patient feels well and denies any complaints. Physical examination remains unchanged. He remains on continous bladder irrigation with drainage of mildly red tinged urine. Labs were not checked this morning- serum chemistry should be drawn to assess for improvement of acute kidney injury; losartan and lasix remain on hold. Patient is tolerating a diet and no longer requires fluids. He remains on ciprofloxacin. Problem list -BPH status post TURP, on continuous bladder irrigation -Acute kidney injury, likely post renal -Chronic kidney disease, stage III -Hypertension -Hyperlipidemia -Uiw-iuuohtw-kmvqpgquk diabetes mellitus -Coronary artery disease status post CATE 2 (2012) -MAYA, on CPAP -Morbid obesity Recommendations -Post procedure care per urology -Nocturnal CPAP -Discontinue IV fluids -Accu-Cheks 3 times a day before meals/at bedtime -Continue NovoLog pre-meal sliding scale while in hospital -Continue other medications as ordered -Hold losartan/Lasix for acute kidney injury, restart as tolerated/needed -Monitor renal function, recheck BMP today -Antibiotics per urology -DVT prophylaxis Plan: as above Subjective Subjective: Patient seen and examined. He is seen sitting upright in bed resting comfortably. He appears to be in no acute distress. He reports feeling well and has no complaints. He remains on CBI overnight without any issues. He otherwise denies any fever, chills, chest pain, shortness of breath, abdominal pain. Objective Last 24 Hrs of Vital Signs/I&O Vital Signs Date Time Temp Pulse Resp B/P B/P Pulse O2 O2 Flow FiO2 Mean Ox Delivery Rate 02/06 0815 62 146/84 02/06 0633 97.5 58 18 154/82 96 02/06 0030 75 95 02/05 2137 97.6 73 18 144/74 95 Room Air 02/05 1459 98.2 74 18 145/74 96 Room Air 02/05 1201 97.5 66 18 143/77 96 Room Air Intake & Output 02/06 1600 02/06 0800 02/06 0000 Intake Total 1040 Output Total 2950 Balance -1910 Intake, IV 800 Intake, Oral 240 Output, Urine 2950 Physical Exam Other Physical Findings: Gwcplgu-ghft-zsraicpgn, well-nourished elderly man in no acute distress HEENT-NCAT, Mary, EOMI, anicteric sclera, moist mucous membranes Neck-supple, no JVD, trachea midline Cardio-normal S1/S2 without murmurs/gallops/rubs; regular rate and rhythm Pulmonary-clear to auscultation bilaterally Abdomen-soft, nontender, nondistended, bowel sounds intact -Vargas catheter draining yellow/slightly red urine Neuro-awake and alert, cranial nerves II through XII grossly intact Extremities-normal pulses, no edema Current Medications: Current Medications Sig/Sarah Start time Last Medication Dose Route Stop Time Status Admin Al Hydroxide/Mg 30 ML Q6P PRN 02/05 0945 AC Hydroxide PO Allopurinol 300 MG DAILY 02/06 0900 AC 02/06 PO 0815 Atorvastatin Calcium 20 MG 1700 02/05 1700 AC 02/05 PO 1803 Ciprofloxacin 500 MG BID 02/05 2100 AC 02/06 PO 02/06 2059 0815 Ciprofloxacin 500 MG ONCE 02/05 0000 DC PO 02/05 2359 Clopidogrel Bisulfate 75 MG DAILY 02/06 09 AC 02/06 PO 0815 Dextrose/Sodium 1,000 ML .Q10H 02/05 0945 AC 02/06 Chloride IV 0548 Docusate Sodium 100 MG DAILY NEEDED PRN 02/05 0945 AC PO Finasteride 5 MG DAILY 02/06 900 AC 02/06 PO 0815 Furosemide 20 MG DAILY 02/06 09 CAN PO Gabapentin 400 MG Q8 02/05 1400 AC 02/06 PO 0547 Insulin Aspart 0 TIDAC 02/05 1215 AC 02/06 SC 0814 Losartan Potassium 50 MG DAILY 02/06 900 CAN PO Nifedipine 60 MG DAILY 02/06 0900 AC 02/06 PO 0815 Omeprazole 40 MG DAILY AC 02/06 0700 AC 02/06 PO 0547 Oxycodone/ 2 TAB Q4P PRN 02/05 1000 AC Acetaminophen PO Patient Medication 1 ED ONE ONE 02/05 1945 DC Teaching ED 02/05 1946 Zolpidem Tartrate 5 MG AT BEDTIME NEED.. 02/05 0945 AC PO Results Last 24 Hrs Lab/Ashu Results: Laboratory Tests 02/05/18 1020: Estimated GFR 30 L, BUN/Creatinine Ratio 30.9 H Angela Thomas MD 02/06/18 1016: Attending MD Review Statement Attending Sign Off Attending Cosign Statement: I have: examined this patient, reviewed aval EMR data, personally reviewd images, discussd w/resident/PA/BUILDING OPERATOR, discussed mgmt plan w/jean claude, discussed mgmt plan w/pt, agreed w/resident/PA/BUILDING OPERATOR, amended to note. Other Findings: Patient seen and examined, feels okay. Still getting a CBI and draining pink urine. Blood work from this morning is pending. Blood sugars are running in acceptable range and systolic blood pressure is running in the 140s range. Vital Signs Date Time Temp Pulse Resp B/P B/P Pulse O2 O2 Flow FiO2 Mean Ox Delivery Rate 02/06 0815 62 146/84 02/06 0633 97.5 58 18 154/82 96 02/06 0030 75 95 02/05 2137 97.6 73 18 144/74 95 Room Air 02/05 1459 98.2 74 18 145/74 96 Room Air 02/05 1201 97.5 66 18 143/77 96 Room Air on exam; aox3, nad. obese. cv; s1,s2, rrr resp; clear abd; soft, nt, bs+ ext; no edema CBI running and pinkish urine coming. Labs pending. Assessment and recommendations: 67 y/o M with pmh sig for DM, HTN, CAD with stent placement 2012, CKD 3 from bladder outlet obstruction, MAYA on CPAP hs, Gout patient is status post TURP by Dr. Perry postop day # 1. Medical consult obtained for the management of medical conditions. Blood sugars are running in acceptable range on sliding scale. Blood pressure is relatively stable. We have held his losartan and Lasix and will wait for the creatinine results today. If improved then will resume ARB and diuretic. Patient still has CBI running per urology. He is draining pinkish urine. H&H from this morning is pending. Continue nifedipine. His Plavix was also resumed by urology yesterday. Patient is getting hydrated with IV fluids. If creatinine stable and will likely stop the IV fluids as p.o. intake is good. DVT px; ALPS. Thank you for allowing us to participate in the care of this patient, will follow along with you.
[2018-02-06 13:41] LABS: ABSOLUTE BASOPHIL COUNT 0 /CUMM (0.0-0.2); ABSOLUTE EOSINOPHIL COUNT 0.2 /CUMM (0.0-0.7); ABSOLUTE GRANULOCYTE CT 4.5 /CUMM (1.4-6.5); ABSOLUTE MONOCYTE COUNT 0.3 /CUMM (0.10-0.60); BASOPHIL % 0.4 % (0.0-2.0); EOSINOPHIL % 2.7 % (0-5); GRANULOCYTE % 74.9 % (42.2-75.2); MEAN CORPUSCULAR HGB CONC 32.2 G/DL (33.0-37.0); MEAN CORPUSCULAR VOLUME 87.1 FL (80.0-94.0); PLATELET COUNT 256 /CUMM (130-400); RBC DISTRIBUTION WIDTH 17.7 % (11.5-14.5); RED BLOOD CELL CT 3.44 /CUMM (4.70-6.10); WHITE BLOOD CELL COUNT 6.1 /CUMM (4.8-10.8)
[2018-02-06 14:37] VITALS: BP 142/76
[2018-02-06 20:59] VITALS: BP 149/75
[2018-02-06 21:52] VITALS: BP 90/39
[2018-02-07 06:40] VITALS: BP 128/64
--- NOTE | 2018-02-07 08:10 | PN- Medicine Consult ---
Monet ENGLISH,Huan 02/07/1805: Assessment/PlanMedical Consult Assessment/Plan Assessment: 67-year-old man with multiple medical problems significant for BPH and chronic kidney disease placed under observation post operatively for TURP for obstructive uropathy secondary to an enlarged prostate. Overnight fingersticks ranged 177-221 since noon yesterday requiring small amounts of premeal insulin. He continues to feel well without any complaints. Vitals remain within normal limits. Physical exam is unchanged. Renal function normalied yesterday. CBI continues with drainage of a clear urine. Patient remains on ciprofloxacin. Patient is stable for discharge to home from a medical prespective. CBI may be transitioned to whiting catheter and patient discharged with it. Patient should follow up with Dr. Perry after discharge. Decision to continue antibiotics on discharge deferred to surgical team. Will sign off for now, should patient stay reconsult as needed. Problem list -BPH status post TURP, on continuous bladder irrigation -Acute kidney injury, likely post renal -Chronic kidney disease, stage III -Hypertension -Hyperlipidemia -Gmm-oszpcqo-evxudfvcl diabetes mellitus -Coronary artery disease status post CATE 2 (2012) -MAYA, on CPAP -Morbid obesity Recommendations -Stable for discharge from medical prespective -Post procedure care per urology -Nocturnal CPAP -Accu-Cheks 3 times a day before meals/at bedtime -Continue NovoLog pre-meal sliding scale while in hospital -Continue other medications as ordered -Antibiotics per urology -DVT prophylaxis -Signing off, reconsult as needed if necessary Plan: As above Subjective Subjective: Patient seen and examiend. He is seen sitting upright in bed resting comfortably. He appears to be in no acute distress. He reports feeling well and has no complaints. He denies any fever, chills, chest pain, shortness of breath, abdominal pain. Objective Last 24 Hrs of Vital Signs/I&O Vital Signs Date Time Temp Pulse Resp B/P B/P Pulse O2 O2 Flow FiO2 Mean Ox Delivery Rate 02/07 0640 97.7 60 18 128/64 97 CPAP 02/07 0130 64 93 02/06 2059 97.6 63 17 149/75 98 Room Air 02/06 1712 65 140/78 02/06 1437 97.9 65 18 142/76 97 Room Air 02/06 0815 62 146/84 Intake & Output 02/07 1600 02/07 0800 09/06 0000 Intake Total 100 3060 Output Total 1350 4500 Balance -1250 -1440 Intake, IV 60 Intake, Oral 100 3000 Number 0 Bowel Movements Output, Urine 1350 4500 Physical Exam Other Physical Findings: Vfwydza-hbkr-vealznydl, well-nourished elderly man in no acute distress HEENT-NCAT, Mary, EOMI, anicteric sclera, moist mucous membranes Neck-supple, no JVD, trachea midline Cardio-normal S1/S2 without murmurs/gallops/rubs; regular rate and rhythm Pulmonary-clear to auscultation bilaterally Abdomen-soft, nontender, nondistended, bowel sounds intact -Whiting catheter draining clear/yellow urine Neuro-awake and alert, cranial nerves II through XII grossly intact Extremities-normal pulses, no edema Current Medications: Current Medications Sig/Sarah Start time Last Medication Dose Route Stop Time Status Admin Al Hydroxide/Mg 30 ML Q6P PRN 02/05 0945 AC Hydroxide PO Allopurinol 300 MG DAILY 02/06 0900 AC 02/06 PO 0815 Atorvastatin Calcium 20 MG 1700 02/05 1700 AC 02/06 PO 1712 Ciprofloxacin 500 MG BID 02/05 2100 AC 02/06 PO 02/078 2111 Clopidogrel Bisulfate 75 MG DAILY 02/06 0900 AC 02/06 PO 0815 Dextrose/Sodium 1,000 ML .Q10H 02/05 0945 DC 02/06 Chloride IV 0548 Docusate Sodium 100 MG DAILY NEEDED PRN 02/05 0945 AC PO Finasteride 5 MG DAILY 02/06 0900 AC 02/06 PO 0815 Gabapentin 400 MG Q8 02/05 1400 AC 02/07 PO 0614 Insulin Aspart 0 TIDAC 02/05 1215 AC 02/06 SC 1712 Losartan Potassium 50 MG DAILY 02/06 1549 AC 02/06 PO 1712 Nifedipine 60 MG DAILY 02/06 0900 AC 02/06 PO 0815 Omeprazole 40 MG DAILY AC 02/06 0700 AC 02/07 PO 0614 Oxycodone/ 2 TAB Q4P PRN 02/05 1000 AC Acetaminophen PO Patient Medication 1 ED ONE ONE 02/06 1145 DC Teaching ED 02/06 1146 Torsemide 40 MG DAILY 02/06 1549 AC 02/06 PO 1710 Zolpidem Tartrate 5 MG AT BEDTIME NEED.. 02/05 0945 AC PO Results Last 24 Hrs Lab/Ashu Results: Laboratory Tests 02/06/18 1030: Anion Gap 9, Estimated GFR > 60, BUN/Creatinine Ratio 31.8 H, CBC w Diff NO MAN DIFF REQ, RBC 3.44 L, MCV 87.1, MCH 28.0, MCHC 32.2 L, RDW 17.7 H, MPV 9.0, Gran % 74.9, Lymphocytes % 16.3 L, Monocytes % 5.7, Eosinophils % 2.7, Basophils % 0.4, Absolute Granulocytes 4.5, Absolute Lymphocytes 1.0 L, Absolute Monocytes 0.3, Absolute Eosinophils 0.2, Absolute Basophils 0 William ENGLISH,[facility] 02/07/18 1250: Attending MD Review Statement Attending Sign Off Attending Cosign Statement: I have: examined this patient, reviewed [facility] EMR data, personally reviewd images, discussd w/resident/PA/BOILER CONTROL ROOM OPERATOR, discussed mgmt plan w/jean claude, discussed mgmt plan w/pt, agreed w/resident/PA/BOILER CONTROL ROOM OPERATOR, amended to note. Other Findings: Patient seen and examined, feel well. Urine is now clear and CBI is off. BP and Blood sugars are stable. Continue home meds. Abx per urology. Pt is stable from medical stand point to get discharged.
[2018-02-07 08:35] VITALS: BP 128/64
--- NOTE | 2018-02-07 09:26 | Patient Discharge Instructions ---
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 You had these procedures: Cystoscopy, TURP Watch for these problems: Increased pain, fever, blood/clots in your whiting Call Surgeon to remove: Whiting removal Diet Continue normal diet: Yes Activity Full Activity/No Limits: No Activity Self Limited: Yes Acute Coronary Syndrome Inclusion Criteria At DC or during hospital stay patient has or had the following: ACS DIAGNOSIS No Discharge Core Measures Meds if any: Prescribed or Continued at Discharge Meds if any: NOT Prescribed or Continued at Discharge Congestive Heart Failure Inclusion Criteria At DC or during hospital stay patient has or had the following: CHF DIAGNOSIS No Discharge Core Measures Meds if any: Prescribed or Continued at Discharge Meds if any: NOT Prescribed or Continued at Discharge Cerebrovascular accident Inclusion Criteria At DC or during hospital stay patient has or had the following: CVA/TIA Diagnosis No Discharge Core Measures Meds if any: Prescribed or Continued at Discharge Meds if any: NOT Prescribed or Continued at Discharge Venous thromboembolism Inclusion Criteria VTE Diagnosis No VTE Type NONE VTE Confirmed by (Test) NONE Discharge Core Measures - Per Current guidelines, there needs to be overlap - treatment for the first 5 days of Warfarin therapy. - If discharged on Warfarin prior to 5 days of - overlap therapy, the patient will need to be - assessed for post discharge needs including - *Post discharge parental anticoagulation - *Warfarin and/or parental anticoagulation education - *Follow up date to check INR post discharge At least 5 days overlap therapy as Inpatient No Meds if any: Prescribed or Continued at Discharge Note: Overlap Therapy is Warfarin and Anticoagulant Meds if any: NOT Prescribed or Continued at Discharge
--- NOTE | 2018-02-07 09:35 | PN- Urology ---
Subjective Subjective: Patient denies pain. . Per nursing, CBI still running with clear urine in whiting. Patient tolerating diet and eager to go home. Requesting to not be discharged with a narcotic rx. Offers no complaints. Objective Vital Signs and I&Os Vital Signs Date Time Temp Pulse Resp B/P B/P Pulse O2 O2 Flow FiO2 Mean Ox Delivery Rate 02/08 0835 64 128/64 02/07 0835 64 128/64 02/07 0640 97.7 60 18 128/64 97 CPAP 02/07 0130 64 93 02/06 2059 97.6 63 17 149/75 98 Room Air 02/06 171 65 140/78 02/06 1437 97.9 65 18 142/76 97 Room Air Intake & Output 02/07 1600 02/07 0000 02/06 1600 02/06 0000 Intake Total 100 3060 720 1040 Output Total 1350 4500 2200 2950 Balance -1250 -1440 -1480 -1910 Intake, IV 60 800 Intake, Oral 100 3000 720 240 Number 0 Bowel Movements Output, Urine 1350 4500 2200 2950 Patient 340 lb Weight Physical Exam: Gen - resting comfortably in nad Cardiac - S1S2 noted Lungs - anterior bs clear Abd - soft, obese, nontender - whiting in place with clear yellow urine, CBI running Ext - alps in place, no edema or calf pain Current Medications: Current Medications Sig/Sarah Start time Last Medication Dose Route Stop Time Status Admin Al Hydroxide/Mg 30 ML Q6P PRN 02/05 945 AC Hydroxide PO Allopurinol 300 MG DAILY 02/06 900 AC 02/07 PO 0835 Atorvastatin Calcium 20 MG 1700 02/05 1700 AC 02/06 PO 1712 Ciprofloxacin 500 MG BID 02/05 2100 AC 02/07 PO 02/0735 Clopidogrel Bisulfate 75 MG DAILY 02/06 900 AC 02/07 PO 0835 Dextrose/Sodium 1,000 ML .Q10H 02/05 945 DC 02/06 Chloride IV 0548 Docusate Sodium 100 MG DAILY NEEDED PRN 02/05 0945 PO Finasteride 5 MG DAILY 02/06 900 AC 02/07 PO 0835 Gabapentin 400 MG Q8 02/05 1400 AC 02/07 PO 0614 Insulin Aspart 0 TIDAC 02/05 1215 AC 02/07 SC 0835 Losartan Potassium 50 MG DAILY 02/06 1549 AC 02/07 PO 0835 Nifedipine 60 MG DAILY 02/06 0900 AC 02/07 PO 0835 Omeprazole 40 MG DAILY AC 02/06 0700 AC 02/07 PO 0614 Oxycodone/ 2 TAB Q4P PRN 02/05 1000 AC Acetaminophen PO Patient Medication 1 ED ONE ONE 02/06 1145 DC Teaching ED 02/06 1146 Torsemide 40 MG DAILY 02/06 1549 AC 02/07 PO 0835 Zolpidem Tartrate 5 MG AT BEDTIME NEED.. 02/05 0945 AC PO Results Last 48 Hours of Labs: Laboratory Tests 02/06 02/05 1030 1020 Chemistry Sodium (137 - 145 mmol/L) 138 Potassium (3.5 - 5.1 mmol/L) 4.6 Chloride (98 - 107 mmol/L) 107 Carbon Dioxide (22 - 30 mmol/L) 22 Anion Gap (5 - 16) 9 BUN (9 - 20 mg/dL) 35 H 68 H Creatinine (0.7 - 1.2 mg/dL) 1.1 2.2 H Estimated GFR (>60 ml/min) > 60 30 L BUN/Creatinine Ratio (7 - 25 %) 31.8 H 30.9 H Hematology CBC w Diff NO MAN DIFF REQ WBC (4.8 - 10.8 /CUMM) 6.1 RBC (4.70 - 6.10 /CUMM) 3.44 L Hgb (14.0 - 18.0 G/DL) 9.6 L Hct (42 - 52 %) 30.0 L MCV (80.0 - 94.0 FL) 87.1 MCH (27.0 - 31.0 PG) 28.0 MCHC (33.0 - 37.0 G/DL) 32.2 L RDW (11.5 - 14.5 %) 17.7 H Plt Count (130 - 400 /CUMM) 256 MPV (7.4 - 10.4 FL) 9.0 Gran % (42.2 - 75.2 %) 74.9 Lymphocytes % (20.5 - 51.1 %) 16.3 L Monocytes % (1.7 - 9.3 %) 5.7 Eosinophils % (0 - 5 %) 2.7 Basophils % (0.0 - 2.0 %) 0.4 Absolute Granulocytes (1.4 - 6.5 /CUMM) 4.5 Absolute Lymphocytes (1.2 - 3.4 /CUMM) 1.0 L Absolute Monocytes (0.10 - 0.60 /CUMM) 0.3 Absolute Eosinophils (0.0 - 0.7 /CUMM) 0.2 Absolute Basophils (0.0 - 0.2 /CUMM) 0 Assessment/Plan Assessment/Plan 67 M POD 1 s/p cystoscopy, TURP secondary to BPH with retention and arfs and bilateral grade 4/4 hydronephrosis, recovering well undergoing CBI with clear urine without clots, DELMAR resolved, stable for discharge D/c CBI Cont cipro, as prescribed D/c home with whiting bag Appreciate medicine involvement F/u in 1-2 weeks as instructed by Dr. Perry Core Measures Venous Thromboembolism VTE Risk Factors Surgery No Mechanical VTE Prophylaxis d/t N/A MechProphylax Ordered No VTE Pharm Prophylaxis d/t NA PharmProphylax ordered
== END 2018-02-07 12:50 | DRG 713 ==
LOC: DELPENDDIS → STS 03:19 → PACUH 08:39 → ENRESERV 10:52 → ENTRNSPT 11:06 → EDTRNSPT 11:27 → EDTRNSPTSTS 11:27 → 2NB 11:37 → CMPTRNSPT 11:55 → ENPENDDIS 02-06 07:47 → 2NB 02-06 10:33 → ENPENDDIS 02-07 09:25 → ENTRNSPT 02-07 12:48 → 2NB 02-07 12:50 → EDTRNSPT 02-07 12:55 → EDTRNSPTSTS 02-07 12:55 → CMPTRNSPT 02-07 13:14
PROVIDERS: Urology
PROC: 0VT08ZZ Resection of Prostate, Via Natural or Artificial Opening Endoscopic (ICD-10-PCS; principal; 2018-02-05)
PROC: 0TC68ZZ Extirpation of Matter from Right Ureter, Via Natural or Artificial Opening Endoscopic (ICD-10-PCS; principal; 2018-02-05)
PROC: 0T7B8DZ Dilation of Bladder with Intraluminal Device, Via Natural or Artificial Opening Endoscopic (ICD-10-PCS; principal; 2018-02-05)
PROC: 0T768DZ Dilation of Right Ureter with Intraluminal Device, Via Natural or Artificial Opening Endoscopic (ICD-10-PCS; principal; 2018-02-05)
DX: N40.1 Benign prostatic hyperplasia with lower urinary tract symptoms (principal); Z68.41 Body mass index [BMI] 40.0-44.9, adult; N17.9 Acute kidney failure, unspecified; N13.30 Unspecified hydronephrosis; N13.8 Other obstructive and reflux uropathy; R33.8 Other retention of urine; I12.9 Hypertensive chronic kidney disease with stage 1 through stage 4 chronic kidney disease, or unspecified chronic kidney disease; E11.22 Type 2 diabetes mellitus with diabetic chronic kidney disease; E66.9 Obesity, unspecified; I25.10 Atherosclerotic heart disease of native coronary artery without angina pectoris; G47.33 Obstructive sleep apnea (adult) (pediatric); Z95.5 Presence of coronary angioplasty implant and graft; N18.3 Chronic kidney disease, stage 3 (moderate); M10.9 Gout, unspecified; E66.01 Morbid (severe) obesity due to excess calories; E78.5 Hyperlipidemia, unspecified; Z95.9 Presence of cardiac and vascular implant and graft, unspecified
CPT/HCPCS: 2NSBP; 36592; 82436; J0696; J2250; J7042